=== PATIENT | male | born 2000 | race Caucasian/White ===

== ENCOUNTER 2023-04-10 09:29 | Inpatient (IN) | payer BC, SELFPAY ==
[2023-04-10 09:36] VITALS: BP 150/96; PULSE 106; RESP 16; TEMP 37.2; O2SAT 98; BMI 23.6
--- NOTE | 2023-04-10 09:41 | ED.C_ITS ---
Documented by User: TAMICA Whitt 04/10/23 10:45 HPI - Psych 2 General: Chief Complaint: Psychiatric Symptoms Stated Complaint: 96 hr hold Time Seen by Provider: 04/10/23 09:32 Source: patient and police Mode of arrival: other (police) Limitations: altered mental status History of Present Illness: Patient is a 22-year-old male who presents to the ED today on a 96-hour hold brought in by police. According to hold paperwork patient believes the government is trying to kill his coworkers and are actively hunting him. Hold paperwork states that patient believes he created an artificial intelligence and the government is now wanting him because of such. He reportedly lives in [place]. It is unknown how he got to [place]. Patient told officers that individuals had been shot at his workplace and he had fled. Hold paperwork states he told his sister that he found a scientific equation that can explain everything mathematically and that nobody could know about it because he did not want it getting into the wrong hands. He wanted his dad to retain a breastfeeding program coordinator to paten this information. He believed he would when a [employer] for it. complaint: altered mental status and other (delusional) Onset (ago): day(s) Duration: constant History of same: No Relieving factors: none Exacerbating factors: none Associated symptoms: Deny auditory hallucinations, visual hallucinations, depression, homicidal ideation or suicidal ideation Treatments prior to arrival: placed on mental health hold Review of Systems 2 Const: Denies: fever(s) or chills Card: Denies: chest pain, palpitations, lightheadedness or syncope Resp: Denies: dyspnea GI: Denies: abdominal pain, nausea, vomiting or diarrhea Skin/Breast: Denies: rash Neuro: Denies: headache(s) Psych: Reports: anxiety and paranoia; Denies: depression, hopelessness, loss of interest, irritability, visual hallucinations, auditory hallucinations, suicidal ideation or homicidal ideation Physical Exam 2 Const: COMMON NORMALS: no acute distress, average body habitus, patient oriented x3, no limitations, healthy appearing, alert and well nourished G ENERAL APPEARANCE: cooperative and well kempt Resp: COMMON NORMALS: normal respiratory effort and clear to auscultation bilaterally AUSCULTATION: clear to auscultation bilaterally Cardio: COMMON NORMALS: regular rate and regular rhythm RATE: regular rate RHYTHM: regular rhythm Neuro: COMMON NORMALS: patient oriented x3 SENSORIUM/ORIENTATION: Yes alert Psych: COMMON NORMALS: mental status grossly normal, cooperative, normal affect, speech normal, activity/motor behavior normal, denies hallucinations, denies homicidal ideation and denies suicidal ideation APPEARANCE: Yes grossly normal and Yes well kempt ATTITUDE: Yes Guarded attititude/behavior present ACTIVITY/MOTOR BEHAVIOR: Yes appropriate eye contact and No psychomotor agitation SPEECH: Yes normal speech MOOD & AFFECT: Yes euthymic mood ATTENTION/CONCENTRATION: Yes attention grossly intact and Yes concentration grossly intact MEMORY/COGNITION: Yes memory grossly intact and Yes cognition grossly intact INSIGHT: Limited insight present (Psych) J UDGEMENT: Limited judgement present (Psych) Course 2 Consultations: Consultation #1: Dr. Sr-accepts to NPU Vital Signs: Vital signs: Vital Signs Temperature 97.5 F L 04/12/23 20:29 Pulse Rate 105 H 04/12/23 22:04 Respiratory Rate 122 H 04/12/23 22:05 Blood Pressure 117/84 04/12/23 20:29 Pulse Oximetry 95 04/12/23 20:29 Oxygen Delivery Me thod Room Air 04/12/23 14:00 [facility] - Psych Medical Decision Making Patient will be an admit to NPU to Dr. Sr for treatment and evaluation of his acute psychosis. He is on a 96-hour hold. Lab Data I reviewed the patient's lab results. 04/12/23 01:13 04/12/23 01:13 Radiology Impressions Chest X-Ray 04/12/23 00:54 IMPRESSION: Mild lung hyperinflation without other significant plain radiographic abnormality. Chest CTA 04/12/23 02:37 IMPRESSION: 1. No pulmonary embolus detected 2. No aortic aneurysm or dissection 3. Negative for infiltrate 4. At least 1 gallstone detected within the gallbladder. Negative for gallbladder wall thickening or biliary ductal dilatation Gallbladder Ultrasound 04/12/23 04:39 IMPRESSION: 1. Suboptimal/incomplete visualization pancreas 2. Single gallstone in what appears to be a small amount of sludge identified in the gallbladder without gallbladder wall thickening or biliary ductal dilatation. Laboratory Results WBC 7.02 10^3/uL (3.29-11.43) 04/10/23 09:55 RBC 5.20 10^6/uL (3.85-5.65) 04/10/23 09:55 Hgb 16.10 g/dL (11.27-16.99) 04/10/23 09:55 Hct 47.5 % (37-53) 04/10/23 09:55 MCV 91.3 fl (82-101) 04/10/23 09:55 MCH 31.0 pg (27-33) 04/10/23 09:55 MCHC 33.9 g/dL (30-55) 04/10/23 09:55 RDW 12.4 % (12.1-15.1) 04/10/23 09:55 Plt Count 290 10^3/cmm (157-399) 04/10/23 09:55 MPV 8.8 fL (7.4-10.4) 04/10/23 09:55 Neut % (Auto) 75.3 % 04/10/23 09:55 Lymph % (Auto) 17.5 % 04/10/23 09:55 Perry % (Auto) 6.6 % 04/10/23 09:55 Eos % (Auto) 0.1 % 04/10/23 09:55 Baso % (Auto) 0.4 % 04/10/23 09:55 Neut # (Auto) 5.28 10^3/uL (1.8-7.7) 04/10/23 09:55 Lymph # (Auto) 1.2 10^3/uL (0.8-4.8) 04/10/23 09:55 Perry # (Auto) 0.5 10^3/uL (0.2-0.9) 04/10/23 09:55 Eos # (Auto) 0.0 10^3/uL (0.0-0.8) 04/10/23 09:55 Baso # (Auto) 0.0 10^3/uL (0.0-0.1) 04/10/23 09:55 Nucleated RBC % (auto) 0 % 04/10/23 09:55 Nucleated RBCs # 0.0 /100WBC 04/10/23 09:55 Sodium 141 mmol/L (136-145) 04/10/23 09:55 Potassium 5.4 mmol/L (3.5-5.1) H 04/10/23 09:55 Chloride 103 mmol/L (98-107) 04/10/23 09:55 Carbon Dioxide 21 mmol/L (22-29) L 04/10/23 09:55 Anion Gap 22.4 (5-19) H 04/10/23 09:55 BUN 7 mg/dL (6-20) 04/10/23 09:55 Creatinine 0.9 mg/dL (0.7-1.2) 04/10/23 09:55 GFR Calculation 103.7 mL/min (90-130) 04/10/23 09:55 Glucose 102 mg/dL (65-115) 04/10/23 09:55 Calculated Osmolality 290 mOsm/kg (285-295) 04/10/23 09:55 Calcium 10.2 mg/dL (8.5-10.5) 04/10/23 09:55 Total Bilirubin 1.5 mg/dL (0.15-1.2) H 04/10/23 09:55 AST 14 U/L (0-40) 04/10/23 09:55 ALT 14 U/L (0-41) 04/10/23 09:55 Alkaline Phosphatase 36 U/L (40-130) L 04/10/23 09:55 Total Protein 8.2 g/dL (6.6-8.7) 04/10/23 09:55 Albumin 5.1 g/dL (3.5-5.2) 04/10/23 09:55 Globulin 3.1 g/dL (1.3-4.6) 04/10/23 09:55 Salicylates < 0.3 mg/dL (3-10) L 04/10/23 09:55 Urine Opiates Screen Negative ng/mL (Negative) 04/10/23 09:37 Acetaminophen < 5.0 ug/mL (10-30) L 04/10/23 09:55 Ur Barbiturates Screen Negative ng/mL (Negative) 04/10/23 09:37 Ur Phencyclidine Scrn Negative ng/mL (Negative) 04/10/23 09:37 Ur Amphetamines Screen Negative ng/mL (Negative) 04/10/23 09:37 U Benzodiazepines Scrn Negative ng/mL (Negative) 04/10/23 09:37 Urine Cocaine Screen Negative ng/mL (Negative) 04/10/23 09:37 U Marijuana (THC) Screen Positive ng/mL (Negative) H 04/10/23 09:37 Ethyl Alcohol < 10 mg/dL (0-10) 04/10/23 09:55 No radiology studies performed this visit Discharge Plan Discharge Patient Disposition: Admitted As Inpatient Admit Provider: Nuno Sr Clinical Impression: Acute psychosis Condition: Stable Coding Level of Care Code ED Sales Data Analyst for Chg Fwd Documented by User: Derick Burdick DO 04/13/23 07:10 HPI - Psych 2 General: Chief Complaint: Psychiatric Symptoms Stated Complaint: 96 hr hold Time Seen by Provider: 04/10/23 09:32 Course 2 Vital Signs: Vital signs: Vital Signs Temperature 97.5 F L 04/12/23 20:29 Pulse Rate 105 H 04/12/23 22:04 Respiratory Rate 122 H 04/12/23 22:05 Blood Pressure 117/84 04/12/23 20:29 Pulse Oximetry 95 04/12/23 20:29 Oxygen Delivery Me thod Room Air 04/12/23 14:00 MDM - Psych Medical Decision Making Patient will be an admit to NPU to Dr. Sr for treatment and evaluation of his acute psychosis. He is on a 96-hour hold. Midlevel review orders written Lab Data 04/12/23 01:13 04/12/23 01:13 Radiology Impressions Chest X-Ray 04/12/23 00:54 IMPRESSION: Mild lung hyperinflation without other significant plain radiographic abnormality. Chest CTA 04/12/23 02:37 IMPRESSION: 1. No pulmonary embolus detected 2. No aortic aneurysm or dissection 3. Negative for infiltrate 4. At least 1 gallstone detected within the gallbladder. Negative for gallbladder wall thickening or biliary ductal dilatation Gallbladder Ultrasound 04/12/23 04:39 IMPRESSION: 1. Suboptimal/incomplete visualization pancreas 2. Single gallstone in what appears to be a small amount of sludge identified in the gallbladder without gallbladder wall thickening or biliary ductal dilatation. Laboratory Results WBC 7.02 10^3/uL (3.29-11.43) 04/10/23 09:55 RBC 5.20 10^6/uL (3.85-5.65) 04/10/23 09:55 Hgb 16.10 g/dL (11.27-16.99) 04/10/23 09:55 Hct 47.5 % (37-53) 04/10/23 09:55 MCV 91.3 fl (82-101) 04/10/23 09:55 MCH 31.0 pg (27-33) 04/10/23 09:55 MCHC 33.9 g/dL (30-55) 04/10/23 09:55 RDW 12.4 % (12.1-15.1) 04/10/23 09:55 Plt Count 290 10^3/cmm (157-399) 04/10/23 09:55 MPV 8.8 fL (7.4-10.4) 04/10/23 09:55 Neut % (Auto) 75.3 % 04/10/23 09:55 Lymph % (Auto) 17.5 % 04/10/23 09:55 Perry % (Auto) 6.6 % 04/10/23 09:55 Eos % (Auto) 0.1 % 04/10/23 09:55 Baso % (Auto) 0.4 % 04/10/23 09:55 Neut # (Auto) 5.28 10^3/uL (1.8-7.7) 04/10/23 09:55 Lymph # (Auto) 1.2 10^3/uL (0.8-4.8) 04/10/23 09:55 Perry # (Auto) 0.5 10^3/uL (0.2-0.9) 04/10/23 09:55 Eos # (Auto) 0.0 10^3/uL (0.0-0.8) 04/10/23 09:55 Baso # (Auto) 0.0 10^3/uL (0.0-0.1) 04/10/23 09:55 Nucleated RBC % (auto) 0 % 04/10/23 09:55 Nucleated RBCs # 0.0 /100WBC 04/10/23 09:55 Sodium 141 mmol/L (136-145) 04/10/23 09:55 Potassium 5.4 mmol/L (3.5-5.1) H 04/10/23 09:55 Chloride 103 mmol/L (98-107) 04/10/23 09:55 Carbon Dioxide 21 mmol/L (22-29) L 04/10/23 09:55 Anion Gap 22.4 (5-19) H 04/10/23 09:55 BUN 7 mg/dL (6-20) 04/10/23 09:55 Creatinine 0.9 mg/dL (0.7-1.2) 04/10/23 09:55 GFR Calculation 103.7 mL/min (90-130) 04/10/23 09:55 Glucose 102 mg/dL (65-115) 04/10/23 09:55 Calculated Osmolality 290 mOsm/kg (285-295) 04/10/23 09:55 Calcium 10.2 mg/dL (8.5-10.5) 04/10/23 09:55 Total Bilirubin 1.5 mg/dL (0.15-1.2) H 04/10/23 09:55 AST 14 U/L (0-40) 04/10/23 09:55 ALT 14 U/L (0-41) 04/10/23 09:55 Alkaline Phosphatase 36 U/L (40-130) L 04/10/23 09:55 Total Protein 8.2 g/dL (6.6-8.7) 04/10/23 09:55 Albumin 5.1 g/dL (3.5-5.2) 04/10/23 09:55 Globulin 3.1 g/dL (1.3-4.6) 04/10/23 09:55 Salicylates < 0.3 mg/dL (3-10) L 04/10/23 09:55 Urine Opiates Screen Negative ng/mL (Negative) 04/10/23 09:37 Acetaminophen < 5.0 ug/mL (10-30) L 04/10/23 09:55 Ur Barbiturates Screen Negative ng/mL (Negative) 04/10/23 09:37 Ur Phencyclidine Scrn Negative ng/mL (Negative) 04/10/23 09:37 Ur Amphetamines Screen Negative ng/mL (Negative) 04/10/23 09:37 U Benzodiazepines Scrn Negative ng/mL (Negative) 04/10/23 09:37 Urine Cocaine Screen Negative ng/mL (Negative) 04/10/23 09:37 U Marijuana (THC) Screen Positive ng/mL (Negative) H 04/10/23 09:37 Ethyl Alcohol < 10 mg/dL (0-10) 04/10/23 09:55 Discharge Plan Discharge Patient Disposition: Admitted As Inpatient Admit Provider: Nuno Sr Clinical Impression: Acute psychosis Condition: Stable Coding Level of Care Code ED Sales Data Analyst for Lloyd French
[2023-04-10 09:49] LABS: Amphetamines Screen Urine Negative (Negative); Barbiturates Screen Urine Negative (Negative); Benzodiazepines Screen Urine Negative (Negative); Cocaine Screen Urine Negative (Negative); Opiate Screen Urine Negative (Negative); PCP Screen Urine Negative (Negative); THC Screen Urine Positive (Negative)
[2023-04-10 10:11] LABS: Basophils % 0.4 %; Eosinophils % 0.1 %; Hematocrit 47.5 % (37-53); Lymphocytes # 1.2 10^3/uL (0.8-4.8); Lymphocytes % 17.5 %; Mean Corpuscular HGB Conc 33.9 g/dL (30-55); Mean Corpuscular Volume 91.3 fl (82-101); Mean Platelet Volume 8.8 fL (7.4-10.4); Monocytes # 0.5 10^3/uL (0.2-0.9); Monocytes % 6.6 %; Neutrophils # 5.28 10^3/uL (1.8-7.7); Neutrophils % 75.3 %; Nucleated Red Blood Cells % 0 %; Platelet Count 290 10^3/cmm (157-399); Red Cell Distribution Width 12.4 % (12.1-15.1); White Blood Count 7.02 10^3/uL (3.29-11.43)
[2023-04-10 10:33] LABS: Alanine Aminotransferase 14 U/L (0-41); Albumin Level 5.1 g/dL (3.5-5.2); Alkaline Phosphatase 36 U/L (40-130); Anion Gap 22.4 (5-19); Aspartate Amino Transferase 14 U/L (0-40); Blood Urea Nitrogen 7 mg/dL (6-20); Calcium 10.2 mg/dL (8.5-10.5); Carbon Dioxide 21 mmol/L (22-29); Chloride 103 mmol/L (98-107); Creatinine Clr Calc Pharmacy 127.9043; Globulin 3.1 g/dL (1.3-4.6); Glomerular Filtration Rate 103.7 mL/min (90-130); Glucose 102 mg/dL (65-115); Osmolality Calculated 290 mOsm/kg (285-295); Potassium 5.4 mmol/L (3.5-5.1); Sodium 141 mmol/L (136-145); Total Bilirubin 1.5 mg/dL (0.15-1.2); Total Protein 8.2 g/dL (6.6-8.7)
[2023-04-10 10:35] LABS: Acetaminophen < 5.0 ug/mL (10-30); Alcohol Level < 10 mg/dL (0-10); Salicylate < 0.3 mg/dL (3-10)
[2023-04-10] MEDS: ibuprofen 600 mg Tablet PO (10:57)
--- NOTE | 2023-04-10 12:15 | PC.NURSE ---
96 hour hold rights read and reviewed with patient. Patient verbalized understandings. Copy of rights given to patient.
[2023-04-10 12:31] VITALS: BP 150/96; PULSE 106; RESP 16; TEMP 37.2; O2SAT 98
[2023-04-10 12:56] VITALS: BP 132/87; PULSE 105; RESP 14; TEMP 36.8; O2SAT 98
--- NOTE | 2023-04-10 13:18 | PC.NURSE ---
Patient arrived to unit, appearing a bit nervous and paranoid. Patient requested that staff lock his door when we left the room. He was understanding when we explained why we had to keep it open to be able to do 15 minute checks. When asked what had brought him to the ER he stated, no clear reason. The police just brought me in. They said it was to check on my mental health or something. When asking if patient was in any pain today he replied, ya, I actually have been a little bit lately. Maybe that's why the police brought me here? He endorses a recent poor appetite because of stress. 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 When asked if this was for school or work he stated that it was for neither, that he just had to get it done. He denies any previous psychiatric hospitalizations or outpatient treatment. He also denies avh and si/hi. Patient only endorses utilizing marijuana twice weekly, with the last use being 5 days ago.
[2023-04-10 13:25] VITALS: BP 129/82; PULSE 98; RESP 13; TEMP 36.6; O2SAT 98
--- NOTE | 2023-04-10 16:13 | PC.NURSE ---
Patient stated to this nurse, you might wanna stay away from me so I don't hurt your baby. Ya know, because of the radiation I'm emitting. And that's not good for babies. He then later asked if this RN if he passed if I could spread the word to trustworthy people and that he knew he sounded like a paranoid schizophrenic, but that he was not a paranoid schizophrenic. Patient pacing the hallway very quickly.
--- NOTE | 2023-04-10 18:16 | PC.NURSE ---
Patient yelled for nurses that there was someone with a loaded gun in the [facility] bathroom on the south side. This RN went with the patient to assure him no one was in the restroom. After patient accepted no one was there he began to panic again and asked that we check on the doctor in the doctor's office because he believed someone was in there with a gun about to kill him. This nurse reassured him the doctor was okay and patient began rambling about how it was normal for him to be paranoid because he had been threatened with murder for the last 4 years for what he had thought of and shared with others.
[2023-04-10 20:44] VITALS: BP 112/61; PULSE 81; RESP 18; TEMP 36.5; O2SAT 91
--- NOTE | 2023-04-10 23:44 | PC.NURSE ---
WHEN COMPLETING ASSESSMENT EARLIER IN THE SHIFT PT DENIED PAIN. DENIED SI/HI AND AVH. RATED ANXIETY 8/10 AND DEPRESSION 0/10. PT MADE AT POINT TO LET RN KNOW I'M NOT CRAZY BUT WHEN THE CAMERAS ARE NOT ON I NEED TO TELL YOU SOMETHING. RN ASSURED PT THAT HE COULD TELL ME ANYTHING BUT PT DECLINED AT THIS TIME. PT CONTINUED TO PACE HALLS AND WAS ACTIVELY ANXIOUS. PT WAS OFFERED PRN MEDICATIONS AND MEDICATIONS TO ENHANCE SLEEP. PT STATED I'V BEEN AWAKE FOR SIX DAYS AND I'M NOT SLEEPING NOW. PT IS NOTED TO HAVE DELUSIONS AND MADE STATEMENTS THAT DR. IS REALLY AND AI TOOK OVER HIS BODY. I'M TELLING YOU THIS SO YOU KNOW AND CAN PREPARE FOR THE WAR AGAINST THE GOOD PEOPLE AND THE BAD AI PEOPLE. PT THEN LOOKED UP TO THE CAMERAS AND STATED SEE THESE CAMERAS ARE AI AND THEY REPORT BACK EVERYTHING WE ARE SAYING AND SINCE I TOLD YOU THIS NOW YOUR GOING TO BECAUSE THEY CAN PINPOINT YOU AND RELEASE RADIATION, THE RADIATION TAKES TWO MONTHS TO KILL YOU BUT YOU WILL . RN AND STAFF UNABLE TO ORIENTATE PT. PT THINKS IF WE DO NOT AGREE WITH HIM AND DON'T BELIEVE HIM THEN WE ARE AI TOO AND HE CAN NO LONGER TRUST THE STAFF. PT CONTINUES TO PACE HALLS, HAVE PARANOIA AND DELUSIONAL THINKING. PT ASKS RN TO SNEAK A PHONE INTO HIM SO HE CAN GET A MESSAGE OUT TO THE WORLD TO PREPARE FOR THE WAR. PT WAS EDUCATED THAT HE CAN USE THE PHONE FROM 0700 AM TO 2200 AND STAFF IS UNABLE TO LET HIM USE ANY ELECTRONIC DEVICE. PT VERBALIZED UNDERSTANDING BUT STATED I REALLY NEED TO GET THE MESSAGE OUT. SECURITY CAME DOWN TO SPEAK TO PT REGARDING PTS REQUEST TO HAVE THE AREA CHECKED FOR RADIATION. PT ALSO WOULD LIKE STAFF AND HIM CHECKED FOR RADIATION DUE TO THE AI TECHNOLOGY BEING ABLE TO PINPOINT RADIATION ONTO ALL OF US FOR KNOWING THIS INFORMATION. PT IS FIXATED AND STATES HE CAN NOT REST UNTIL THE ROOM IS CHECKED FOR RADIATION. PT INFORMED THAT RN DID NOT KNOW IF WE HAD ANYTHING TO MEASURE RADIATION WITH BUT IF I COULD FIND SOMETHING RN WOULD DEFINITELY CHECK HIS ROOM SO HE COULD SLEEP. PT ALSO BELIEVES THERE ARE CHIPS IMPLANTED IN OTHER PTS NOSES. ALL QUESTIONS ANSWERED AND SUPPORT WAS VOICED.
[2023-04-11] VITALS (9 sets, daily range): BP systolic 104–129; BP diastolic 65–79; PULSE 74–119; RESP 16–22; O2SAT 95–98
--- NOTE | 2023-04-11 08:14 | P.NPUHP_ITS ---
Providers/Chief Complaint 2 Admitting Physician: Nuno Sr MD Chief Complaint: 96 hr hold [facility] NPU History of Present Illness Elijah Patel is a 22 year old male who presented to the emergency department on 04/10/2023 on a 96-hour hold on the order of the police. The patient's sister, Kim, per previous records had contacted the crisis team on the phone and stated that she was concerned about the whereabouts of her brother Elijah. The patient had apparently gone to work in [facility] and had begun to have hallucinations that his coworkers were being killed. Patient had then apparently left his phone at work went into his car and travel to where [facility] where he had claimed that a bird had helped him find the police station. The patient had indeed confirmed of this information on interview today. He reports that he had spoken to officers and told them that individuals at his workplace had been shot at and he reports that he has managed to discover a specific scientific equation that can explain everything mathematically and he reports that this information if given to the wrong hands would lead to his . He had stated that he would be potentially killed for this information as it had been regarding artificial intelligence and he stated that the government was now attempting to justin him down. He denied any depressed mood. He denied having thoughts of hurting himself or others. He denied any current auditory or visual hallucinations. He had acknowledged that he had felt that his coworkers had been potentially killed. He had reported no change in sleep patterns. The patient had reported during the interview that the senior copywriter and the patient had shared the diagnosis of autism. He had reported having special knowledge exclusive to him only. He minimized any manic symptoms on interview. Inpatient psychiatric history: None Outpatient psychiatric history: None Drug and alcohol history: Patient minimized any drug or alcohol use stating that he occasionally uses marijuana. He has no history of drug or alcohol treatment. 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 Surgical history: Rhinoplasty Allergies: Penicillin Family psychiatric history: Mother suffered from depression Social history: Patient was born in [facility] and raised by his parents who had split up when he was approximately 2 years old. He reports that he had lived with his mother until the seventh grade and then had gone to live with the father. She he reported that he had done well in school. He had reported no history of sexual physical or emotional abuse. He reported that he has an older sister that is approximately 11 years older. 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 He has never been and has no children. He has no history of legal problems and has no history. Meds NPU Home Medications Medication Instructions Recorded Confirmed Last Taken Type hydroxyzine HCl 25 mg tablet 25 mg PO BID PRN Anxiety 04/10/23 04/10/23 Unknown History ibuprofen 200 mg tablet 400 - 600 mg PO Q6H PRN Pain 04/10/23 04/10/23 Unknown History sumatriptan succinate 100 mg tablet See Rx Instructions .Route .COMPLEX 04/10/23 04/10/23 Unknown History Allergies Allergy/AdvReac Type Severity Reaction Status Date / Time Penicillins Allergy Unknown Verified 04/10/23 10:18 Mental Status Exam 2 MSE Comments: Healthy white male who appeared his stated age with fair eye contact and normal gait. There was no evidence of any abnormal involuntary motor movements tics or tremors. He did appear internally preoccupied. His speech was normal in regards to volume, but with increased rate. His mood was described as worried. His affect was mood incongruent and somewhat grandiose. He had endorsed a feeling of uniqueness and specialist with clear evidence of delusions of grandeur. His thought process was linear and logical. His thought content showed no evidence of homicidal ideation and no suicidal ideation. There was clear evidence of bizarre delusions. He did at times appear to be responding to internal stimuli. His insight is impaired. His judgment is poor. His impulse control appeared limited. He was alert and oriented to person place and time. There was significant evidence of ideas of reference. Vitals/I&O/Wt Last Vital Signs Temp 98 F 04/10/23 13:25 Pulse 98 04/10/23 13:25 Resp 13 04/10/23 13:25 BP 129/82 04/10/23 13:25 Pulse Ox 98 04/10/23 13:25 O2 Del Method Room Air 04/10/23 12:58 Weight last 48 hrs Weight 72.575 kg Data NPU 04/10/23 09:55 04/10/23 09:55 A&P Assessment and plan (1) Acute psychosis: (2) Brief psychotic disorder: Plan 22-year-old male who presents on a 96-hour hold acutely psychotic with significant paranoia along with some grandiosity involving having solved some mysterious mathematical equation leading to the patient feeling as if his life is in danger. He has no previous history of inpatient hospitalizations but likely benefit from continued hospital stay here. ?1. Encourage individual, group and milieu therapy. ?2.Recommend sober living treatment at the highest level of care to which the patient is willing to commit. 3.Continue q-15 minute checks for safety.? 4. Patient remain on 96, refusing any medication at this time will likely require forced medications. Involuntary Hold Information 2 96 Hour Hold: 96 Hour Involuntary Admission: Yes 96 Hour Hold Ending Date: 04/16/23 96 Hour Hold Ending Time: 09:29 Attestations NPU 2 Medical Necessity Statement*: Inpatient hospitalization is medically necessary and deemed to be the clinically appropriate intervention at this time. We will monitor initiate medications while making changes as indicated. The patient will be in the hospital for over 2 midnights. Patient's likely length of stay is 7 to 10 days. Coding Level of Care Code Acute Code for Chg Fwd Diagnoses Acute psychosis F23 Brief psychotic disorder F23
--- NOTE | 2023-04-11 08:35 | PC.NURSE ---
PT CURRENTLY DENIES SI/HI/AH/VH. PT IS PACING THE HALLWAYS AND TALKING CONSTANTLY. PT CURRENTLY ENDORSES ANXIETY RATING IT A 4/10 ON A 0-10 SCALE WHERE 0 IS NONE AND 10 IS THE WORST. PT CURRENTLY DENIES PRN MEDICATION FOR ANXIETY. PT ENDORSES DEPRESSION RATING IT A 6/10 ON A SCALE OF 0-10 WHERE 0 IS NONE AND 10 IS THE WORST. PT ALSO ENDORSES PAIN RATING IT A 3/10 ON A 0-10 SCALE WHERE 0 IS NONE AND 10 IS THE WORST HOWEVER DENIES NEED FOR PAIN MEDICATIONS. PT CURRENT NEEDS ARE MET AT THIS TIME.
[2023-04-11] MEDS: haloperidol inj 5 mg/mL INJ 1 mL IM (09:12)
[2023-04-11] MEDS: LORazepam 2 mg/mL INJ 1 mL IM (09:12)
[2023-04-11] MEDS: diphenhydrAMINE 50 mg/mL SDV 1mL IM (09:12)
--- NOTE | 2023-04-11 09:35 | W.PM.BREST ---
Face to Face: Restrn/Seclusion Events leading up to initiation: Combative/Striking out at staff or others Evaluation of patient's immediate situation: No signs of physical distress Patient reaction since intervention applied: Continued attempts/displays harmful behavior Recent labs reviewed: No Review of medications: Yes Patient's current medical/behavioral condition: No new concerns since last ROS Need for restraint or seclusion is: Continued Attending notified: Attending completed assessment
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
--- NOTE | 2023-04-11 11:32 | PC.NURSE ---
processing out one limb at a time
--- NOTE | 2023-04-11 11:33 | PC.NURSE ---
processing out one limb at a time
--- NOTE | 2023-04-11 11:37 | PC.NURSE ---
all limbs out of restraints, 1:1 sitter present. patient lying on bed with eyes closed, resp even and unlabored.
--- NOTE | 2023-04-11 12:55 | PC.NURSE ---
Patient up and to the bathroom, changed scrubs and went to bed. Patient doesn't know what day it is and is unsure where he is. Patient asking questions about robots and security. Patient was asked if he wanted to lay down and rest, patient states he does. Sitter outside door.
--- NOTE | 2023-04-11 20:27 | PC.NURSE ---
due to pt behaviours vital signs not done.
[2023-04-12] VITALS (12 sets, daily range): BP systolic 95–128; BP diastolic 65–89; PULSE 86–193; RESP 15–122; TEMP 36.3–37.1; O2SAT 95–97; BMI 26.6
--- NOTE | 2023-04-12 00:23 | ECG_ITS ---
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 Measurements Intervals [place] Rate: 176 P: 0 CA: 0 QRS: 263 QRSD: 94 T: 70 QT: 245 QTc: 420 Interpretive Statements ATRIAL FIBRILLATION versus atrial flutter versus SVT RIGHT AXIS DEVIATION [QRS AXIS > 100] S1-S2-S3 PATTERN, CONSISTENT WITH PULMONARY DISEASE, RVH, OR NORMAL VARIANT PATTERN CONSISTENT WITH PULMONARY DISEASE INCOMPLETE RIGHT BUNDLE BRANCH BLOCK [90+ ms QRS DURATION, TERMINAL R IN V1/V2, 40+ ms S IN I/aVL/V4/V5/V6] CRITICAL TEST RESULT No previous ECG available for comparison Electronically Signed On 04-12-2023 7:53:46 REFRIGERATING MACHINE OPERATOR by Jesse Ramos M.D. [id number]
--- NOTE | 2023-04-12 00:54 | XRR_ITS ---
PROCEDURE INFORMATION: Exam: XR Chest Exam date and time: 04/12/2023 1:09 AM Age: 22 years old Clinical indication: Patient HX: New onset of afib; Additional info: New afib w rvr TECHNIQUE: Imaging protocol: Radiologic exam of the chest. Views: 1 view. COMPARISON: No relevant prior studies available. FINDINGS: Lungs: Mildly hyperinflated lungs.. No consolidation. Pleural spaces: Unremarkable. No pleural effusion. No pneumothorax. Heart/Mediastinum: Unremarkable. No cardiomegaly. Bones/joints: Unremarkable. XR/XR chest 1V portable [id number] IMPRESSION: Mild lung hyperinflation without other significant plain radiographic abnormality.
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
[2023-04-12 01:30] LABS: Basophils % 0.5 %; Eosinophils # 0.1 10^3/uL (0.0-0.8); Hematocrit 45.1 % (37-53); Lymphocytes # 1.8 10^3/uL (0.8-4.8); Lymphocytes % 20.6 %; Mean Corpuscular HGB Conc 35.3 g/dL (30-55); Mean Corpuscular Hemoglobin 31.5 pg (27-33); Mean Corpuscular Volume 89.3 fl (82-101); Mean Platelet Volume 8.6 fL (7.4-10.4); Monocytes # 0.8 10^3/uL (0.2-0.9); Monocytes % 9.7 %; Neutrophils # 5.86 10^3/uL (1.8-7.7); Neutrophils % 68.1 %; Nucleated Red Blood Cells % 0 %; Platelet Count 274 10^3/cmm (157-399); Red Blood Count 5.05 10^6/uL (3.85-5.65); Red Cell Distribution Width 12.4 % (12.1-15.1)
--- NOTE | 2023-04-12 01:39 | P.CONIM_ITS ---
Providers/Reason For Consult 2 Consulting Physician/Specialty*: Psychiatry Dr Ryder Reason for Consult*: AFib w RVR Attending Physician: Nuno Sr MD History of Present Illness History of Present Illness Elijah Patel is a 22 year old male 22-year-old gentleman admitted to neuropsychiatric unit with acute psychotic episode, noticed having palpitations/racing heart rate this evening, EKG was performed with finding of A-fib with RVR heart rates 160s-170s. He does not have history of atrial fibrillation. Lab work from 04/10 with mild hyperkalemia 5.4. He states that he vapes marijuana, denies other recreational drug use. Does not drink alcohol. He denies chest pain or pressure, denies lightheadedness or other symptoms. He has had mild cough. Review of Systems 2 Const: Denies: fever(s), chills, body aches or malaise ENMT: Denies: throat pain Card: Reports: palpitations; Denies: chest pain, edema, pre-syncope or dyspnea on exertion Resp: Reports: productive cough (Smaller sputum that is difficult to bring up); Denies: dyspnea, change in phlegm color or hemoptysis GI: Denies: abdominal pain, nausea, vomiting, diarrhea, constipation, hematochezia or melena : Denies: flank pain, difficulty urinating, urinary frequency or hematuria Musc: Denies: back pain, joint swelling or joint redness Skin/Breast: Denies: rash or new lesions Medications/Allergies Home Medications Medication Instructions Recorded Confirmed Last Taken Type hydroxyzine HCl 25 mg tablet 25 mg PO BID PRN Anxiety 04/10/23 04/10/23 Unknown History ibuprofen 200 mg tablet 400 - 600 mg PO Q6H PRN Pain 04/10/23 04/10/23 Unknown History sumatriptan succinate 100 mg tablet See Rx Instructions .Route .COMPLEX 04/10/23 04/10/23 Unknown History Allergies Allergy/AdvReac Type Severity Reaction Status Date / Time Penicillins Allergy Unknown Verified 04/10/23 10:18 Current Medications Generic Name Dose Route Start Last Admin Trade Name Freq PRN Reason Stop Dose Admin Diphenhydramine HCl 50 mg 04/10/23 12:56 04/11/23 09:12 Diphenhydramine 50 Mg/Ml Sdv 1ml IM 50 mg Q4H PRN Administration Severe Aggression Haloperidol Lactate 5 mg 04/10/23 12:56 04/11/23 09:12 Haloperidol Inj 5 Mg/Ml Inj 1 Ml IM 5 mg Q4H PRN Administration Severe Aggression Lorazepam 2 mg 04/10/23 12:56 04/11/23 09:12 Lorazepam 2 Mg/Ml Inj 1 Ml IM 2 mg Q4H PRN Administration Severe Aggression Vitals/I&O/Wt Last Vital Signs Temp 97.4 F L 04/12/23 00:32 Pulse 173 H 04/12/23 00:56 Resp 20 H 04/12/23 00:32 BP 119/75 04/12/23 00:32 Pulse Ox 95 04/12/23 00:32 O2 Del Method Room Air 04/12/23 00:32 04/11/23 04/11/23 04/12/23 14:59 22:59 06:59 Output Total 375 / 375 Balance -375 / -375 Weight last 48 hrs Weight 72.575 kg Physical Exam 2 Const: COMMON NORMALS: patient oriented x3 and alert GENERAL APPEARANCE: c ooperative ORIENTATION/CONSCIOUSNESS: Yes awake HENMT: COMMON NORMALS: oropharynx normal Neck/C-Spine: COMMON NORMALS: no JVD Resp: COMMON NORMALS: normal respiratory effort and clear to auscultation bilaterally AUSCULTATION: clear to auscultation bilaterally Cardio: COMMON NORMALS: no JVD, regular rhythm, S1 normal heart sound present, S2 normal heart sound present and No murmurs present (Cardio) RATE: t achycardic RHYTHM: regular rhythm HEART SOUNDS: S1 normal heart sound present and S2 normal heart sound present GI: COMMON NORMALS: Normal to inspection, nondistended, normoactive bowel sounds present, Soft to palpation and non-tender PALPATION: Yes Soft to palpation Extremity: COMMON NORMALS: no joint enlargement and no pedal edema Neuro: COMMON NORMALS: patient oriented x3 and moves all extremities S ENSORIUM/ORIENTATION: Yes alert Skin: COMMON NORMALS: no rashes or lesions noted GENERAL SKIN EXAM: no rashes or lesions noted Data 04/12/23 01:13 04/10/23 09:55 A&P Assessment and plan (1) Paroxysmal atrial fibrillation with RVR: A-fib with RVR symptomatic with palpitations, heart rates 170s-180s. So far maintain blood pressure: 119/75. Reviewed CBC, CMP from 04/10, UDS, reviewed psychiatrist note. He is brought over to CSU, IV obtained, placed on telemetry. Requesting Repeat CBC, CMP, Mg, TSH, Trop and EKG series. Discussed with him risk of decompensation, hemodynamic instability, starting with metoprolol IV 5 mg, repeated dose if necessary. Discussed risk of bradycardia, hypotension with IV metoprolol treatment. Need for continued monitoring. Monitor on telemetry. Discussed with psychiatrist. Complete troponin EKG series. Will need echocardiogram once heart rate better controlled. He does have some cough, with tachycardia will also assess D-dimer. (2) Acute psychosis: At current time moved to CSU for additional assessment management of tachycardia. Continue management of psychosis, should be able to return to n.p.u. once heart rate is controlled. (3) Brief psychotic disorder: Consult Attestations 2 Medical Necessity Statement: Continue admission for assessment management of tachycardia, episode of psychosis. Diagnoses Paroxysmal atrial fibrillation with RVR I48.0 Acute psychosis F23 Brief psychotic disorder F23
[2023-04-12 01:51] LABS: Troponin(5th) Baseline 9 ng/L (0-15)
[2023-04-12] MEDS: metoprolol tartrate 1 mg/1 mL SDV 5 mL 5 MG IVP (01:58)
[2023-04-12 02:13] LABS: Alanine Aminotransferase 21 U/L (0-41); Alkaline Phosphatase 37 U/L (40-130); Aspartate Amino Transferase 45 U/L (0-40); Blood Urea Nitrogen 11 mg/dL (6-20); Calcium 10.2 mg/dL (8.5-10.5); Carbon Dioxide 22 mmol/L (22-29); Chloride 102 mmol/L (98-107); Creatinine Clr Calc Pharmacy 127.9043; Globulin 2.4 g/dL (1.3-4.6); Glomerular Filtration Rate 103.7 mL/min (90-130); Glucose 111 mg/dL (65-115); Magnesium 1.9 mg/dL (1.7-2.3); Osmolality Calculated 290 mOsm/kg (285-295); Sodium 140 mmol/L (136-145); Thyroid Stimulating Hormone 2.98 uIU/mL (0.27-4.20); Total Bilirubin 1.8 mg/dL (0.15-1.2); Total Protein 7.4 g/dL (6.6-8.7)
[2023-04-12 02:34] LABS: D Dimer 1.32 ug/mLFEU (0-0.59)
--- NOTE | 2023-04-12 02:37 | CTR_ITS ---
PROCEDURE INFORMATION: Exam: CTA Chest With Contrast Exam date and time: 04/12/2023 4:12 AM Age: 22 years old Clinical indication: Abnormal findings; Abnormal diagnostic tests; Elevated d-dimer; Patient HX: Tachycardia with elevated dimer; Additional info: Assess for pe, tachycardia, cough, abnormal ddimer TECHNIQUE: Imaging protocol: Computed tomographic angiography of the chest with contrast. Exam focused on the arteries. 3D rendering (Not supervised by radiologist): MIP and/or 3D reconstructed images were created by the technologist. Radiation optimization: All CT scans at this facility use at least one of these dose optimization techniques: automated exposure control; mA and/or kV adjustment per patient size (includes targeted exams where dose is matched to clinical indication); or iterative reconstruction. Contrast material: OMNI 350; Contrast volume: 52 ml; Contrast route: INTRAVENOUS (IV); COMPARISON: CR (CHEST, ) 04/12/2023 1:09 AM RADIATION DOSE METRICS: Total DLP (mGy-cm): 255.48 FINDINGS: Pulmonary arteries: No pulmonary embolus is detected. Aorta: here is no aortic aneurysm or dissection. . Lungs: There are no infiltrates Pleural spaces: There is no pleural effusion Heart: There is no pericardial effusion. Lymph nodes: Unremarkable. No enlarged lymph nodes. Gallbladder and bile ducts: There is at least 1 gallstone in the gallbladder. Gallbladder wall does not appear thickened. There is no biliary ductal dilatation. Adrenal glands: The adrenal glands are unremarkable Bones/joints: There are degenerative changes in the spine Soft tissues: Unremarkable. CT/CT angio chest PE protcl [id number] IMPRESSION: 1. No pulmonary embolus detected 2. No aortic aneurysm or dissection 3. Negative for infiltrate 4. At least 1 gallstone detected within the gallbladder. Negative for gallbladder wall thickening or biliary ductal dilatation
--- NOTE | 2023-04-12 02:53 | ECG_ITS ---
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 Measurements Intervals [place] Rate: 127 P: 0 AK: 0 QRS: -42 QRSD: 98 T: 64 QT: 285 QTc: 415 Interpretive Statements ATRIAL FIBRILLATION WITH RAPID VENTRICULAR RESPONSE WITH ABERRANT CONDUCTION OR VENTRICULAR PREMATURE COMPLEXES INDETERMINATE AXIS Compared to ECG 04/12/2023 00:35:51 Ventricular premature complex(es) now present Aberrant conduction of supraventricular beat(s) now present Indeterminate axis now present Right-axis deviation no longer present Right ventricular hypertrophy no longer present Incomplete right bundle-branch block no longer present Electronically Signed On 04-12-2023 7:54:14 MIDDLE SCHOOL SPANISH TEACHER by Jesse Ramos M.D. [id number]
[2023-04-12] MEDS: metoprolol tartrate 25 mg Tablet PO (03:11)
[2023-04-12] MEDS: magnesium sulfate premix 1 GM/100 ML PIGGYBACK IV (03:12)
[2023-04-12 03:42] LABS: Troponin 5 2HR 10.58 ng/L (0-15); Troponin 5 2HR Delta 1.58 ABS# (0-10)
[2023-04-12] MEDS: iohexol 350 mg/mL 500 mL Btl (per mL) IV (04:19)
--- NOTE | 2023-04-12 04:39 | USR_ITS ---
PROCEDURE INFORMATION: Exam: US Abdomen, Limited; Right Upper Quadrant Exam date and time: 04/12/2023 7:43 AM Age: 22 years old Clinical indication: Abnormal findings; Abnormal lab test; Other: Bili; Additional info: Hyperbilirubinemia TECHNIQUE: Imaging protocol: Real time ultrasound of the abdomen with image documentation. Limited exam focused on the right upper quadrant. COMPARISON: CT angio chest PE protcl [id number] 04/12/2023 4:12 AM FINDINGS: Liver: The liver is unremarkable. Gallbladder: There is a mobile stones seen within the gallbladder as noted on CT. There also appears to be some sludge in the gallbladder. There is no gallbladder wall thickening. Biliary ducts: The common bile duct is not dilated and there is no intrahepatic ductal dilatation Pancreas: There is suboptimal/incomplete visualization of the pancreas due to bowel gas. Right kidney: The right kidney is unremarkable. It measures 9 point 1 cm in length Portal venous: The portal vein is patent with normal direction of flow US/US gall bladder [id number] IMPRESSION: 1. Suboptimal/incomplete visualization pancreas 2. Single gallstone in what appears to be a small amount of sludge identified in the gallbladder without gallbladder wall thickening or biliary ductal dilatation.
--- NOTE | 2023-04-12 04:41 | USCV_ITS ---
Elijah Patel Age: 22 Gender: M : 2000 Exam Date: 04/12/2023 14:25 Ordering Phys: Chris Parks MD Technologist: Mars Plascencia [place]am Location[place] [facility] [place] Indication: new afib BP: 130 / 83 HR: Rhythm: Sinus Technical Quality: Adequate MEASUREMENTS (Male / Female) Normal Values 2D ECHO LVOT Diameter 2.0 cm LV Ejection Fraction MOD 2C 57.3 % IVC Diameter 1.7 cm M-MODE LA Ao Ratio MM 1.0 AV Cusp Separation MM 2.1 cm DOPPLER AV Peak Velocity 108.0 cm/s AV Area Cont Eq vti 2.6 cm squared MV Area PHT 5.9 cm squared Mitral E to A Ratio 1.8 TR Peak Velocity 227.0 cm/s TR Peak Gradient 20.6 mmHg PV Peak Velocity 101.0 cm/s FINDINGS Left Ventricle Normal left ventricular size, systolic function and wall thickness, with no regional wall motion abnormalities. Normal left ventricular wall thickness. Normal diastolic filling pattern. Left ventricular ejection fraction is estimated at 60 %. Right Ventricle The right ventricle is normal in size and function. Right Atrium The right atrium is normal in size. Left Atrium The left atrium is normal in size. Mitral Valve Structurally normal mitral valve without significant stenosis or prolapse. There is no mitral regurgitation. Aortic Valve Structurally normal aortic valve without significant sclerosis or stenosis. There is no aortic regurgitation. Tricuspid Valve Structurally normal tricuspid valve without significant stenosis or regurgitation. Pulmonary artery systolic pressure is normal. Pulmonic Valve Structurally normal pulmonic valve without significant stenosis. There is no pulmonic regurgitation. Pericardium Normal pericardium without effusion. Aorta Normal ascending aorta dimension. IVC The inferior vena cava appears normal. CONCLUSIONS Normal transthoracic echocardiogram. There are no prior echocardiogram studies to compare. Dr. Jesse Ramos MD (Electronically Signed) Final Date: 12 April 2023 17:59 S
[2023-04-12 05:54] LABS: Adenovirus Not Detected (NOT DETECT); Chlamydia Pneumoniae Not Detected (NOT DETECT); Coronavirus 229E,HKU1,NL63,OC4 Not Detected (NOT DETECT); Human Metapneumovirus Not Detected (NOT DETECT); Human Rhinovirus/Enterovirus Not Detected (NOT DETECT); Influenza A Not Detected (NOT DETECT); Influenza A H1 Not Detected (NOT DETECT); Influenza A H1-2009 Not Detected (NOT DETECT); Influenza A H3 Not Detected (NOT DETECT); Influenza B Not Detected (NOT DETECT); Mycoplasma Pneumoniae Not Detected (NOT DETECT); Parainfluenza Virus Type 1 Not Detected (NOT DETECT); Parainfluenza Virus Type 2 Not Detected (NOT DETECT); Parainfluenza Virus Type 3 Not Detected (NOT DETECT); Parainfluenza Virus Type 4 Not Detected (NOT DETECT); Respiratory Syncytial Virus A Not Detected (NOT DETECT); Respiratory Syncytial Virus B Not Detected (NOT DETECT); SARS-COV-2 Not Detected (NOT DETECT)
[2023-04-12] MEDS: metoprolol tartrate 25 mg Tablet 50 MG PO (08:34)
[2023-04-12 10:01] LABS: Troponin 5 6HR 8.16 ng/L (0-15)
[2023-04-12 10:02] LABS: Troponin 5 6HR Delta -0.84 ng/L (0-12)
--- NOTE | 2023-04-12 10:41 | P.PN_ITS ---
Subjective 2 Subjective: Gallstones without signs of cholecystitis No signs of PE A-fib RVR Increase the dose of metoprolol [id number] is 4 he is not a candidate for anticoagulation Drug screen reviewed No active chest pain Hemodynamically stable Vitals/I&O/Wt Last Vital Signs Temp 98.2 F 04/12/23 07:13 Pulse 113 H 04/12/23 07:13 Resp 18 04/12/23 07:13 BP 103/70 04/12/23 07:13 Pulse Ox 97 04/12/23 06:00 O2 Del Method Room Air 04/12/23 06:00 04/11/23 04/12/23 04/12/23 22:59 06:59 14:59 Intake Total 100 / 100 240 / 240 Output Total 375 / 375 500 / 500 Balance -275 / -275 -260 / -260 Weight last 48 hrs Weight 81.919 kg Physical Exam 2 Narrative: Awake and alert GCS 15 A-fib RVR Pleasant cough Euvolemic S1, S2 variable Doing well on room air Data 04/12/23 01:13 04/12/23 01:13 A&P Assessment and plan (1) Acute psychosis: (2) Brief psychotic disorder: (3) Paroxysmal atrial fibrillation with RVR: Plan Will increase the dose of metoprolol Add IV fluids, TSH is normal No need of anticoagulation [id number] score is extremely low Magnesium 1.9, potassium and COVID Drug screen reviewed Echo results are pending, no signs of PE Gallstone no active cholecystitis, bilirubin 1.8, monitor CMP Regular diet Full code Can be transferred to neuropsychiatric unit by tomorrow if heart rate improves Attestations 2 Medical Necessity Statement*: Continue medical management Diagnoses Acute psychosis F23 Brief psychotic disorder F23 Paroxysmal atrial fibrillation with RVR I48.0
[2023-04-12] MEDS: sodium chloride 0.9% 1,000 ML 75 ML IV (10:56)
[2023-04-12] MEDS: magnesium oxide 400 mg tablet PO (11:09)
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
--- NOTE | 2023-04-12 22:05 | PC.NURSE ---
Blake put in for a stat EKG. Patient stated he felt like his heart was racing and he was having chest pain.
--- NOTE | 2023-04-12 22:10 | ECG_ITS ---
[facility] Test Date: 2023-04-12 Pat Name: Elijah Patel Department: Room: 151 Gender: Male Utility Manager: : 2000 Requested By: Lorne Ryder Order Number: [id number] Marli MD: Jesse Ramos M.D. Measurements Intervals [place] Rate: 105 P: 74 MN: 123 QRS: -87 QRSD: 94 T: 73 QT: 321 QTc: 424 Interpretive Statements SINUS TACHYCARDIA INDETERMINATE AXIS INCOMPLETE RIGHT BUNDLE BRANCH BLOCK [90+ ms QRS DURATION, TERMINAL R IN V1/V2, 40+ ms S IN I/aVL/V4/V5/V6] Compared to ECG 04/12/2023 03:19:59 Incomplete right bundle-branch block now present Atrial fibrillation no longer present Aberrant conduction of supraventricular beat(s) no longer present Ventricular premature complex(es) no longer present Electronically Signed On 04-12-2023 23:08:45 PURSE FRAMER by Jesse Ramos M.D. [id number]
[2023-04-13] MEDS: OLANZapine 5 mg TABLET PO (03:42)
--- NOTE | 2023-04-13 06:29 | PC.NURSE ---
pt resting in bed after being up all night, vitals not done. respiration rate 15.
[2023-04-13] MEDS: metoprolol tartrate 25 mg Tablet 50 MG PO (08:09)
[2023-04-13] MEDS: magnesium oxide 400 mg tablet PO ×2 (08:09→17:18)
[2023-04-13 14:00] VITALS: BP 109/76; PULSE 104; RESP 16; TEMP 36.8; O2SAT 98
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
[2023-04-13] MEDS: OLANZapine 5 mg ODT PO (20:11)
[2023-04-13] MEDS: ibuprofen 200 mg Tablet 600 MG PO (20:12)
[2023-04-13 20:14] VITALS: BP 116/69; PULSE 94; RESP 20; TEMP 36.6; O2SAT 96
--- NOTE | 2023-04-13 21:04 | PC.NURSE ---
ASSESSMENT COMPLETED WALKING DOWN LEYVA REQUESTED BY PT. PT APPEARS TO HAVE A BRIGHT AND UPBEAT AFFECT THIS SHIFT. REPORTS HAVING A HEADACHE RATING PAIN 3/10, IBUPROFEN 600 MG WAS GIVEN ORDERED. PT REFUSED TO TAKE METOPROLOL ER 50 MG DUE TO HIS BP BEING 116/62. PT DID HOWEVER TAKE HIS SCHEDULED ZYDIS 5 MG. DENIES SI/HI AND AVH AT THIS TIME. RATES ANXIETY 2/10 AND DEPRESSION 0/10. PT IS CALM AND COOPERATIVE. ALL QUESTIONS ANSWERED AND SUPPORT WAS VOICED.
[2023-04-14 06:00] VITALS: BP 118/81; PULSE 110; RESP 18; TEMP 36.4; O2SAT 98
--- NOTE | 2023-04-14 06:29 | PC.NURSE ---
PT TOOK SCHEDULED ZYDIS 5 MG AT BEDTIME. PT WAS ABLE TO REST THROUGHOUT THE SHIFT SLEEPING APPROXIMATELY 8-9 HOURS THIS SHIFT.
[2023-04-14] MEDS: metoprolol tartrate 25 mg Tablet 50 MG PO ×2 (08:00→20:26)
[2023-04-14] MEDS: magnesium oxide 400 mg tablet PO ×2 (08:00→18:10)
[2023-04-14] MEDS: OLANZapine 5 mg TABLET PO (09:20)
--- NOTE | 2023-04-14 13:34 | ECG_ITS ---
[facility] Test Date: 2023-04-14 Pat Name: Elijah Patel Department: Room: 151 Gender: Male [employer]: : 2000 Requested By: Nuno Sr Order Number: [id number] Marli MD: Swapnil Huertas M.D. Measurements Intervals [place] Rate: 82 P: 31 ME: 119 QRS: 92 QRSD: 135 T: 63 QT: 341 QTc: 399 Interpretive Statements SINUS RHYTHM WITH SHORT ME INTERVAL BORDERLINE RIGHT AXIS DEVIATION [QRS AXIS > 90] INTRAVENTRICULAR CONDUCTION DELAY [130+ ms QRS DURATION] Compared to ECG 04/12/2023 22:10:54 Short ME interval now present Intraventricular conduction delay now present Sinus tachycardia no longer present Indeterminate axis no longer present Incomplete right bundle-branch block no longer present Electronically Signed On 04-14-2023 16:33:42 [employer]CHANDISER by Swapnil Huertas M.D. [id number]
[2023-04-14 13:35] VITALS: BP 120/72; PULSE 180
[2023-04-14 14:00] VITALS: RESP 18
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
--- NOTE | 2023-04-14 17:53 | PC.NURSE ---
Patient came up to this nurse stating that he had just had a lot of chest pain and that he was able to deal with it by himself. This nurse asked him what he did to cope. Patient said that he told himself that if it is his time to go then it's his time to go and that is okay. After he told himself this, patient reports feeling better, that the chest pain went away.
[2023-04-14 20:09] VITALS: BP 118/82; PULSE 119; RESP 18; TEMP 36.8; O2SAT 97
[2023-04-14] MEDS: OLANZapine 5 mg ODT 7.5 MG PO (20:26)
[2023-04-14] MEDS: ibuprofen 200 mg Tablet 600 MG PO (21:45)
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
[2023-04-15 06:00] VITALS: BP 119/80; PULSE 94; RESP 20; TEMP 36.5; O2SAT 99
[2023-04-15] MEDS: metoprolol tartrate 25 mg Tablet 50 MG PO ×2 (08:31→21:14)
[2023-04-15] MEDS: magnesium oxide 400 mg tablet PO ×2 (08:31→18:22)
[2023-04-15 14:00] VITALS: BP 125/82; PULSE 100; RESP 20; TEMP 36.6; O2SAT 97
--- NOTE | 2023-04-15 16:24 | P.NPUPN_ITS ---
Subjective NPU 2 Subjective: 22-year-old male with no prior psychiatric history admitted on a 96-hour hold with psychosis. The patient reported no akathisia today. He had taken Zyprexa as prescribed and reported improved sleep. He continued at times to ruminate about his suspicions and reported that his ideas would continue to put him in danger. He was social with his peers. He reported no mood symptoms at this time. He had expressed desire to go home soon. He had stated that he was ready to return to work. No aggression appreciated. Mental Status Exam 2 MSE Comments: Healthy white male who appeared his stated age with fair eye contact and normal gait. There was no evidence of any abnormal involuntary motor movements tics or tremors. He did appear to be internally preoccupied while pacing the [place]. His speech was normal in regards to volume, but with normal rate and no increase in latency. His mood was described as good. His affect remained blunted. There was continued ideas of reference. His thought process was linear and logical. His thought content showed no evidence of homicidal ideation and no suicidal ideation. There was evidence of continued paranoia. His insight is impaired. His judgment is poor. His impulse control appeared limited. He was alert and oriented to person place and time. Recent and remote memory were intact on interview. Vitals/I&O/Wt Last Vital Signs Temp 97.7 F 04/15/23 06:00 Pulse 94 04/15/23 06:00 Resp 20 H 04/15/23 06:00 BP 119/80 04/15/23 06:00 Pulse Ox 99 04/15/23 06:00 O2 Del Method Room Air 04/14/23 20:09 Data NPU 04/12/23 01:13 04/12/23 01:13 A&P Assessment and plan (1) Acute psychosis: (2) Brief psychotic disorder: Plan 22-year-old male who presents on a 96-hour hold acutely psychotic with significant paranoia along with some grandiosity involving having solved some mysterious mathematical equation leading to the patient feeling as if his life is in danger. He has no previous history of inpatient hospitalizations but likely benefit from continued hospital stay here. ?1. Encourage individual, group and milieu therapy. ?2.Recommend sober living treatment at the highest level of care to which the patient is willing to commit. 3.Continue q-15 minute checks for safety.? 4.Continue Zyprexa 7.5mg at night. Continue metoprolol 50mg bid. 5. 21 day hold filed. Involuntary Hold Information 2 96 Hour Hold: 96 Hour Involuntary Admission: Yes 96 Hour Hold Ending Date: 04/16/23 96 Hour Hold Ending Time: 09:29 Attestations NPU 2 Medical Necessity Statement*: Inpatient hospitalization is medically necessary and deemed to be the clinically appropriate intervention at this time. We will monitor initiate medications while making changes as indicated. Patient's likely length of stay is 4-6 days. Coding Level of Care Code Acute Code for [facility] Fwd Diagnoses Acute psychosis F23 Brief psychotic disorder F23
[2023-04-15] MEDS: OLANZapine 5 mg ODT 7.5 MG PO (21:14)
[2023-04-15 21:22] VITALS: BP 115/78; PULSE 89; RESP 20; TEMP 36.9; O2SAT 97
[2023-04-16 06:00] VITALS: BP 101/66; PULSE 92; RESP 18; TEMP 36.8; O2SAT 97
[2023-04-16] MEDS: metoprolol tartrate 25 mg Tablet 50 MG PO ×2 (09:00→21:49)
[2023-04-16] MEDS: nicotine 2 mg Gum BUCCAL (09:00)
[2023-04-16] MEDS: magnesium oxide 400 mg tablet PO ×2 (09:00→17:58)
[2023-04-16 14:00] VITALS: BP 117/73; PULSE 85; RESP 16; TEMP 36.6; O2SAT 98
--- NOTE | 2023-04-16 16:21 | P.NPUPN_ITS ---
Subjective NPU 2 Subjective: Patient presented today reporting that he is feeling better and may be as good as he is ever felt. He was able to talk about some of the errant thinking that he was having but chalked it up to sleep deprivation. 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 We talked about the 21-day hold hearing tomorrow. He discussed not thinking he needed to be here longer and not feeling like there was any thing more for him to get from an extended stay. We agreed we would talk about this more in the morning. Denied any side effects to the medication. Mental Status Exam 2 MSE Comments: This is a well-nourished well-developed white male in hospital scrubs with adequate grooming and eye contact. No abnormal movements except for mild psychomotor agitation. There was no evidence of any abnormal involuntary motor movements tics or tremors. Cooperative with exam in mild distress. His speech was normal in regards to volume, but with increased rate almost mildly pressured. His mood was described as much better. His affect was energetic but occasionally tearful when speaking about being away from his family. There was continued ideas of reference. His thought process was linear and mostly logical. His thought content showed no evidence of homicidal ideation and no suicidal ideation. There was evidence of continued paranoia and possibly yamel. He denied auditory or visual hallucinations. Attention and concentration were mostly intact and memory was somewhat reliable but none were formally tested. He is alert and oriented x 3. His insight is impaired. His judgment is poor. His impulse control appeared limited. Vitals/I&O/Wt Last Vital Signs Temp 98 F 04/16/23 14:00 Pulse 85 04/16/23 14:00 Resp 16 04/16/23 14:00 BP 117/73 04/16/23 14:00 Pulse Ox 98 04/16/23 14:00 O2 Del Method Room Air 04/16/23 14:00 Data NPU 04/12/23 01:13 04/12/23 01:13 A&P Assessment and plan (1) Acute psychosis: (2) Brief psychotic disorder: (3) Yamel: Plan 22-year-old male who presents on a 96-hour hold acutely psychotic with significant paranoia along with some grandiosity involving having solved some mysterious mathematical equation leading to the patient feeling as if his life is in danger. He has no previous history of inpatient hospitalizations but likely benefit from continued hospital stay here. ?1. Encourage individual, group and milieu therapy. ?2.Recommend sober living treatment at the highest level of care to which the patient is willing to commit. 3.Continue q-15 minute checks for safety.? 4.Continue Zyprexa 7.5mg at night. Continue metoprolol 50mg bid. Consider increasing Zyprexa. 5. 21 day hold filed. Hearing tomorrow @1400. Involuntary Hold Information 2 96 Hour Hold: 96 Hour Involuntary Admission: Yes 96 Hour Hold Ending Date: 04/16/23 96 Hour Hold Ending Time: 09:29 Attestations NPU 2 Medical Necessity Statement*: Inpatient hospitalization is medically necessary and deemed to be the clinically appropriate intervention at this time. We will monitor initiate medications while making changes as indicated. Patient's likely length of stay is 4-6 days. Coding Level of Care Code Acute Code for [facility] Fwd Diagnoses Acute psychosis F23 Brief psychotic disorder F23 Yamel F30.9
[2023-04-16 21:09] VITALS: BP 115/77; PULSE 99; RESP 20; O2SAT 97
[2023-04-16] MEDS: OLANZapine 5 mg ODT 7.5 MG PO (21:49)
--- NOTE | 2023-04-16 22:26 | PC.NURSE ---
PT DENIES SI/HI AND AH AT THIS TIME. RATES ANXIETY AND DEPRESSION 0/10. PT REQUESTED DRUG INFORMATION EDUCATION ON METOPROLOL, CARE NOTES GIVEN AND PT SIGNED PAPER. PT CONTINUES TO BE PARANOID ABOUT WRITING HIS NAME, HE BELIEVES IT WILL BE COPIED PT ASSURED THE PAPERWORK GOES INTO HIS CHART AND RN SIGNS HER NAME WELL. ALL QUESTIONS ANSWERED AND SUPPORT WAS VOICED. DENIES PAIN.
[2023-04-17 06:00] VITALS: BP 111/68; PULSE 86; RESP 18; TEMP 36.7; O2SAT 98
--- NOTE | 2023-04-17 06:30 | PC.NURSE ---
PT SLEPT APPROXIMATELY 7-8 HOURS THIS SHIFT. WAS RESTLESS BRIEFLY LAST NIGHT DUE TO INCREASED ROOM TEMPERATURE. NURSE TECH ADJUSTED HEAT AND PT WAS ABLE TO EVENTUALLY LAY DOWN AND REST.
[2023-04-17] MEDS: metoprolol tartrate 25 mg Tablet 50 MG PO ×2 (08:43→20:10)
[2023-04-17] MEDS: magnesium oxide 400 mg tablet PO ×2 (08:43→17:17)
[2023-04-17] MEDS: nicotine 2 mg Gum BUCCAL ×2 (12:01→17:43)
[2023-04-17 14:00] VITALS: BP 106/57; PULSE 86; RESP 16; TEMP 36.6; O2SAT 97
--- NOTE | 2023-04-17 15:56 | P.NPUPN_ITS ---
Subjective NPU 2 Subjective: Patient presented today reporting that he is doing okay. He is accepting of the fact that he was placed on a 21-day hold in hopes of managing what is even being acknowledged by him as delusions and yamel but he quickly shifts and tries to articulate vet there are some things that might be delusional but most of his thoughts are correct. He continues to talk about being really smart and having a significant discovery that is going to change the world and physics and otherwise. Concerns about him being adherent to medication exist as he acknowledges that he does have an engine that arrives at high speed and that he is afraid that the medication might slow down his engine too much as he argues that having a engine such as this is necessary for maximizing effectiveness in his job functioning and creativity. We discussed the risks, benefits and alternatives of initiating a medication that can have a long-acting injectable component, specifically Invega given concerns for his and adherence and he understood and agreed to proceed as is documented in this note. Mental Status Exam 2 MSE Comments: This is a well-nourished well-developed white male in hospital scrubs with adequate grooming and eye contact. No abnormal movements except for mild psychomotor agitation. There was no evidence of any abnormal involuntary motor movements tics or tremors. Cooperative with exam in mild distress. His speech was normal in regards to volume, but with increased rate/mildly pressured. His mood was described as much better. His affect was energetic/manic. There was continued ideas of reference. His thought process was linear and mostly logical. His thought content showed no evidence of homicidal ideation and no suicidal ideation. There was evidence of continued paranoia and yamel. He denied auditory or visual hallucinations. Attention and concentration were mostly intact and memory was somewhat reliable but none were formally tested. He is alert and oriented x 3. His insight is impaired. His judgment is poor. His impulse control appeared limited. Vitals/I&O/Wt Last Vital Signs Temp 97.9 F 04/17/23 14:00 Pulse 86 04/17/23 14:00 Resp 16 04/17/23 14:00 BP 106/57 04/17/23 14:00 Pulse Ox 97 04/17/23 14:00 O2 Del Method Room Air 04/17/23 06:00 Data NPU 04/12/23 01:13 04/12/23 01:13 A&P Assessment and plan (1) Acute psychosis: (2) Brief psychotic disorder: (3) Yamel: Plan 22-year-old male who presents on a 96-hour hold acutely psychotic with significant paranoia along with some grandiosity involving having solved some mysterious mathematical equation leading to the patient feeling as if his life is in danger. He has no previous history of inpatient hospitalizations but likely benefit from continued hospital stay here. ?1. Encourage individual, group and milieu therapy. ?2.Recommend sober living treatment at the highest level of care to which the patient is willing to commit. 3.Continue q-15 minute checks for safety.? 4.Continue Zyprexa 7.5mg at night. Continue metoprolol 50mg bid. Consider increasing Zyprexa. Trial of Invega 3-6 mg to start in the morning. 5. 21 day hold filed. 21-day hold granted today 04/17/2023. Involuntary Hold Information 2 96 Hour Hold: 96 Hour Involuntary Admission: Yes 96 Hour Hold Ending Date: 04/16/23 96 Hour Hold Ending Time: 09:29 Attestations NPU 2 Medical Necessity Statement*: Inpatient hospitalization is medically necessary and deemed to be the clinically appropriate intervention at this time. We will monitor initiate medications while making changes as indicated. Patient's likely length of stay is 4-6 days. Coding Level of Care Code Acute Code for [facility] Diagnoses Acute psychosis F23 Brief psychotic disorder F23 Yamel F30.9
[2023-04-17] MEDS: OLANZapine 5 mg ODT 7.5 MG PO (20:39)
[2023-04-17 20:41] VITALS: BP 91/57; PULSE 106; RESP 18; TEMP 36.8; O2SAT 98
--- NOTE | 2023-04-18 04:42 | PC.NURSE ---
PT TOOK SCHEDULED MEDICATIONS ORDERED. PT CONTINUES TO HAVE PARANOIA BELIEVES THERE IS MOLD GROWING IN HIS ROOM AT TIME. PT WAS ABLE TO REST THIS SHIFT AND HAS SLEPT APPROXIMATELY 7-8 HOURS THIS SHIFT. SUPPORT VOICED.
[2023-04-18 06:00] VITALS: BP 104/61; PULSE 88; RESP 18; TEMP 36.8; O2SAT 98
[2023-04-18] MEDS: metoprolol tartrate 25 mg Tablet 50 MG PO ×2 (08:00→20:22)
[2023-04-18] MEDS: magnesium oxide 400 mg tablet PO ×2 (08:00→17:19)
[2023-04-18] MEDS: nicotine 2 mg Gum BUCCAL ×4 (08:12→20:22)
[2023-04-18] MEDS: paliperidone ER 3 mg Tablet PO (11:30)
[2023-04-18 14:00] VITALS: BP 94/56; PULSE 88; RESP 17; TEMP 36.7; O2SAT 97
--- NOTE | 2023-04-18 17:52 | P.NPUPN_ITS ---
Subjective NPU 2 Subjective: Patient presented today reporting that he is feeling fine. He reports that he now appreciates his manic behavior and reported that he got the Invega today and that it has been really helpful and he believes that he is already felt his engine decreased revving. We discussed the medication taking time and that we would continue to monitor and identify improvements as indicated. He denies any side effects to any of the medication. Mental Status Exam 2 MSE Comments: This is a well-nourished well-developed white male in hospital scrubs with adequate grooming and eye contact. No abnormal movements except for mild psychomotor agitation. There was no evidence of any abnormal involuntary motor movements tics or tremors. Cooperative with exam in mild distress. His speech was normal in regards to volume, but with increased rate/mildly pressured. His mood was described as much better. His affect was energetic/manic. There was continued ideas of reference. His thought process was linear and mostly logical. His thought content showed no evidence of homicidal ideation and no suicidal ideation. There was evidence of continued paranoia and yamel. He denied auditory or visual hallucinations. Attention and concentration were mostly intact and memory was somewhat reliable but none were formally tested. He is alert and oriented x 3. His insight is impaired. His judgment is poor. His impulse control appeared limited. Vitals/I&O/Wt Last Vital Signs Temp 98.0 F 04/18/23 14:00 Pulse 88 04/18/23 14:00 Resp 17 04/18/23 14:00 BP 94/56 04/18/23 14:00 Pulse Ox 97 04/18/23 14:00 O2 Del Method Room Air 04/18/23 06:00 04/18/23 04/18/23 04/18/23 06:59 14:59 22:59 Intake Total 240 / 240 Output Total 500 / 500 Balance -260 / -260 Data NPU 04/12/23 01:13 04/12/23 01:13 A&P Assessment and plan (1) Acute psychosis: (2) Brief psychotic disorder: (3) Yamel: Plan 22-year-old male who presents on a 96-hour hold acutely psychotic with significant paranoia along with some grandiosity involving having solved some mysterious mathematical equation leading to the patient feeling as if his life is in danger. He has no previous history of inpatient hospitalizations but likely benefit from continued hospital stay here. ?1. Encourage individual, group and milieu therapy. ?2.Recommend sober living treatment at the highest level of care to which the patient is willing to commit. 3.Continue q-15 minute checks for safety.? 4.Continue Zyprexa 7.5mg at night. Continue metoprolol 50mg bid. Consider increasing Zyprexa. Started Invega 3 mg p.o. daily and will likely increase to 6 mg tomorrow. 5. 21 day hold filed. 21-day hold granted today 04/17/2023. Involuntary Hold Information 2 96 Hour Hold: 96 Hour Involuntary Admission: Yes 96 Hour Hold Ending Date: 04/16/23 96 Hour Hold Ending Time: 09:29 Attestations NPU 2 Medical Necessity Statement*: Inpatient hospitalization is medically necessary and deemed to be the clinically appropriate intervention at this time. We will monitor initiate medications while making changes as indicated. Patient's likely length of stay is 4-6 days. Coding Level of Care Code Acute Code for [facility] Fwd Diagnoses Acute psychosis F23 Brief psychotic disorder F23 Yamel F30.9
[2023-04-18 20:05] VITALS: BP 108/65; PULSE 103; RESP 16; TEMP 36.5; O2SAT 95
[2023-04-18] MEDS: OLANZapine 5 mg ODT 7.5 MG PO (20:22)
--- NOTE | 2023-04-18 21:30 | PC.NURSE ---
ASSESSMENT COMPLETED. PT STATES THE MEDICATION I STARTED TODAY WORKS REALLY GOOD, I ALREADY FEEL BETTER. RN GAVE MORE EDUCATION ON THE INVEGA AND INFORMED PT IT COMES IN A SHOT. PT GOT EXCITED AND STATED I'M WILLING TO DO THAT IF THAT MEANS I CAN LEAVE SOONER. PT WAS INFORMED IT HAS NOT BEEN ORDERED YET BUT IT MAY BE A POSSIBILITY TO DISCUSS WITH THE DR. PT DENIES PAIN. DENIES SI/HI AND AVH AT THIS. RATES ANXIETY AND DEPRESSION 0/10. ALL QUESTIONS WERE ANSWERED AND SUPPORT WAS VOICED.
[2023-04-19 06:00] VITALS: BP 102/68; PULSE 97; RESP 18; TEMP 36.6; O2SAT 97
[2023-04-19] MEDS: nicotine 2 mg Gum BUCCAL ×4 (06:43→18:39)
[2023-04-19] MEDS: magnesium oxide 400 mg tablet PO ×2 (09:31→17:26)
[2023-04-19] MEDS: metoprolol tartrate 25 mg Tablet 50 MG PO ×2 (09:31→20:26)
[2023-04-19] MEDS: paliperidone ER 3 mg Tablet 6 MG PO (09:31)
--- NOTE | 2023-04-19 11:12 | P.NPUPN_ITS ---
Subjective NPU 2 Subjective: Patient presented today reporting that initially he was feeling challenged by the increase in Invega to 6 mg p.o. daily. He reported the possibility of increased pulse secondary to the medication change. We discussed being doubtful that that was the cause of his false elevation and that the greater likelihood is him pacing the hallways and having anxious thoughts about the medication change. He denied any other concerns for side effects from his medications and continues to report that his yamel has resolved and we continue to discuss that it appears to be having some improvement but still present. Mental Status Exam 2 MSE Comments: This is a well-nourished well-developed white male in hospital scrubs with adequate grooming and eye contact. No abnormal movements except for mild psychomotor agitation. There was no evidence of any abnormal involuntary motor movements tics or tremors. Cooperative with exam in mild distress. His speech was normal in regards to volume, but with increased rate/mildly pressured. His mood was described as much better. His affect was energetic/manic. There was continued ideas of reference. His thought process was linear and mostly logical. His thought content showed no evidence of homicidal ideation and no suicidal ideation. There was evidence of continued paranoia and yamel. He denied auditory or visual hallucinations. Attention and concentration were mostly intact and memory was somewhat reliable but none were formally tested. He is alert and oriented x 3. His insight is impaired. His judgment is poor. His impulse control appeared limited. Vitals/I&O/Wt Last Vital Signs Temp 97.8 F 04/19/23 06:00 Pulse 97 04/19/23 06:00 Resp 18 04/19/23 06:00 BP 102/68 04/19/23 06:00 Pulse Ox 97 04/19/23 06:00 O2 Del Method Room Air 04/19/23 06:00 Weight last 48 hrs Weight 71.384 kg Data NPU 04/12/23 01:13 04/12/23 01:13 A&P Assessment and plan (1) Acute psychosis: (2) Brief psychotic disorder: (3) Yamel: Plan 22-year-old male who presents on a 96-hour hold acutely psychotic with significant paranoia along with some grandiosity involving having solved some mysterious mathematical equation leading to the patient feeling as if his life is in danger. He has no previous history of inpatient hospitalizations but likely benefit from continued hospital stay here. ?1. Encourage individual, group and milieu therapy. ?2.Recommend sober living treatment at the highest level of care to which the patient is willing to commit. 3.Continue q-15 minute checks for safety.? 4.Continue Zyprexa 7.5mg at night. Continue metoprolol 50mg bid. Consider increasing Zyprexa. Started Invega 3 mg p.o. daily and increased to 6 mg. 5. 21 day hold filed. 21-day hold granted 04/17/2023. Involuntary Hold Information 2 96 Hour Hold: 96 Hour Involuntary Admission: Yes 96 Hour Hold Ending Date: 04/16/23 96 Hour Hold Ending Time: 09:29 Attestations NPU 2 Medical Necessity Statement*: Inpatient hospitalization is medically necessary and deemed to be the clinically appropriate intervention at this time. We will monitor initiate medications while making changes as indicated. Patient's likely length of stay is 4-6 days. Coding Level of Care Code Acute Code for [facility] Fwd Diagnoses Acute psychosis F23 Brief psychotic disorder F23 Yamel F30.9
[2023-04-19 14:00] VITALS: BP 108/75; PULSE 97; RESP 17; TEMP 36.9; O2SAT 97
[2023-04-19] MEDS: OLANZapine 5 mg ODT 7.5 MG PO (20:26)
[2023-04-19] MEDS: nicotine 4 mg lozenge MUCOUS MEM (20:26)
[2023-04-19 20:30] VITALS: BP 105/53; PULSE 107; RESP 18; TEMP 36.9; O2SAT 95
--- NOTE | 2023-04-19 21:18 | PC.NURSE ---
PT DENIES PAIN. DENIES SI/HI AND AVH AT THIS TIME. RATES ANXIETY 1/10 AND DEPRESSION 0/10. PPT STATES HE IS DOING BREATHING EXERCISES AND DOES NOT NEED A PRN FOR ANXIETY. PT UPBEAT UP AND INTERACTIING WITH PEERS IN HAPPY AND CONTENT MOOD. ALL QUESTIONS ANSWERED AND SUPPORT VOICED.
[2023-04-20 06:00] VITALS: BP 94/64; PULSE 95; RESP 18; TEMP 36.5; O2SAT 98
--- NOTE | 2023-04-20 06:29 | PC.NURSE ---
PT DID REQUIRE ANY PRN MEDICATIONS THIS SHIFT, DID RECEIVE SCHEDULED DOSE OF ZYDIS 7.5 MG, PT WAS UP 2-3 TIMES DURING THE NIGHT. PT SLEPT APPROXIMATELY 8-9 HOURS THIS SHIFT. PT IS UP AND IN DAY ROOM SPEAKING TO PEERS AND STAFF. NO DISTRESS NOTED AT THIS TIME.
[2023-04-20] MEDS: nicotine 4 mg lozenge MUCOUS MEM ×5 (08:21→18:47)
[2023-04-20] MEDS: metoprolol tartrate 25 mg Tablet 50 MG PO (08:21)
[2023-04-20] MEDS: magnesium oxide 400 mg tablet PO ×2 (08:21→20:23)
[2023-04-20] MEDS: paliperidone ER 3 mg Tablet 6 MG PO (08:21)
--- NOTE | 2023-04-20 12:55 | P.NPUPN_ITS ---
Subjective NPU 2 Subjective: Patient presented today reporting that he is doing better. Staff reports of less significant pressure. He reports that he is doing well on the Invega and that he is open to the possibility of taking a long-acting injectable. He continues to focus on when discharged might happen and denied any side effects to his medication. Mental Status Exam 2 MSE Comments: This is a well-nourished well-developed white male in hospital scrubs with adequate grooming and eye contact. No abnormal movements except for mild psychomotor agitation. There was no evidence of any abnormal involuntary motor movements tics or tremors. Cooperative with exam in mild distress. His speech was normal in regards to volume. His mood was described as much better. His affect was energetic/manic. There was continued ideas of reference. His thought process was linear and mostly logical. His thought content showed no evidence of homicidal ideation and no suicidal ideation. There was evidence of continued paranoia and yamel. He denied auditory or visual hallucinations. Attention and concentration were mostly intact and memory was somewhat reliable but none were formally tested. He is alert and oriented x 3. His insight is impaired. His judgment is poor. His impulse control appeared limited. Vitals/I&O/Wt Last Vital Signs Temp 97.7 F 04/20/23 06:00 Pulse 95 04/20/23 06:00 Resp 18 04/20/23 06:00 BP 94/64 04/20/23 06:00 Pulse Ox 98 04/20/23 06:00 O2 Del Method Room Air 04/19/23 20:30 Weight last 48 hrs Weight 71.384 kg Data NPU 04/12/23 01:13 04/12/23 01:13 A&P Assessment and plan (1) Acute psychosis: (2) Brief psychotic disorder: (3) Yamel: Plan 22-year-old male who presents on a 96-hour hold acutely psychotic with significant paranoia along with some grandiosity involving having solved some mysterious mathematical equation leading to the patient feeling as if his life is in danger. He has no previous history of inpatient hospitalizations but likely benefit from continued hospital stay here. ?1. Encourage individual, group and milieu therapy. ?2.Recommend sober living treatment at the highest level of care to which the patient is willing to commit. 3.Continue q-15 minute checks for safety.? 4.Continue Zyprexa 7.5mg at night. Continue metoprolol 50mg bid. Consider increasing Zyprexa. Started Invega 3 mg p.o. daily and increased to 6 mg. Will consider Invega Sustenna. 5. 21 day hold filed. 21-day hold granted 04/17/2023. Involuntary Hold Information 2 96 Hour Hold: 96 Hour Involuntary Admission: Yes 96 Hour Hold Ending Date: 04/16/23 96 Hour Hold Ending Time: 09:29 Attestations NPU 2 Medical Necessity Statement*: Inpatient hospitalization is medically necessary and deemed to be the clinically appropriate intervention at this time. We will monitor initiate medications while making changes as indicated. Patient's likely length of stay is 3-5 days. Coding Level of Care Code Acute Code for [facility] Fwd Diagnoses Acute psychosis F23 Brief psychotic disorder F23 Yamel F30.9
[2023-04-20 14:00] VITALS: BP 98/52; PULSE 100; RESP 16; TEMP 36.8; O2SAT 97
[2023-04-20 20:04] VITALS: BP 96/53; PULSE 107; RESP 18; TEMP 36.9; O2SAT 98
[2023-04-20] MEDS: OLANZapine 5 mg ODT 7.5 MG PO (20:23)
[2023-04-21 06:00] VITALS: BP 94/59; PULSE 93; RESP 16; TEMP 36.8; O2SAT 97
--- NOTE | 2023-04-21 07:55 | PC.NURSE ---
During morning shift assessment, patient stated that he slept fantastic. Patient went on to say that he slept so well because he stopped listening to his heart at night. Patient stated that he thinks this is why he was having chest pain, previously.
[2023-04-21] MEDS: magnesium oxide 400 mg tablet PO ×2 (08:18→19:28)
[2023-04-21] MEDS: metoprolol tartrate 25 mg Tablet 50 MG PO (08:18)
[2023-04-21] MEDS: paliperidone ER 3 mg Tablet 6 MG PO (08:18)
[2023-04-21] MEDS: nicotine 4 mg lozenge MUCOUS MEM ×4 (08:28→19:29)
[2023-04-21 14:00] VITALS: BP 119/76; PULSE 107; RESP 18; TEMP 36.6; O2SAT 98
--- NOTE | 2023-04-21 15:39 | P.NPUPN_ITS ---
Subjective NPU 2 Subjective: Patient presented today reporting continued improvement with some clear signs of decreased energy per staff reports and direct observation. We discussed his improvement and the likelihood of discharge possibly before the weekend. We discussed the risks, benefits and alternatives of him starting Invega Sustenna 234 mg IM loading dose and he understood and agreed to proceed as is documented in this note he denied any side effects of the medication. Mental Status Exam 2 MSE Comments: This is a well-nourished well-developed white male in hospital scrubs with adequate grooming and eye contact. No abnormal movements except for mild psychomotor agitation. There was no evidence of any abnormal involuntary motor movements tics or tremors. Cooperative with exam in mild distress. His speech was more normal in regards to rate and volume. His mood was described as much better. His affect was more calm. There was continued ideas of reference. His thought process was linear and mostly logical. His thought content showed no evidence of homicidal ideation and no suicidal ideation. There was evidence of continued paranoia and yamel but this was lessening. He denied auditory or visual hallucinations. Attention and concentration were mostly intact and memory was somewhat reliable but none were formally tested. He is alert and oriented x 3. His insight is impaired. His judgment is poor. His impulse control appeared limited. Vitals/I&O/Wt Last Vital Signs Temp 98 F 04/21/23 14:00 Pulse 107 H 04/21/23 14:00 Resp 18 04/21/23 14:00 BP 119/76 04/21/23 14:00 Pulse Ox 98 04/21/23 14:00 O2 Del Method Room Air 04/19/23 20:30 Data NPU 04/12/23 01:13 04/12/23 01:13 A&P Assessment and plan (1) Acute psychosis: (2) Brief psychotic disorder: (3) Yamel: Plan 22-year-old male who presents on a 96-hour hold acutely psychotic with significant paranoia along with some grandiosity involving having solved some mysterious mathematical equation leading to the patient feeling as if his life is in danger. He has no previous history of inpatient hospitalizations but likely benefit from continued hospital stay here. ?1. Encourage individual, group and milieu therapy. ?2.Recommend sober living treatment at the highest level of care to which the patient is willing to commit. 3.Continue q-15 minute checks for safety.? 4.Continue Zyprexa 7.5mg at night. Continue metoprolol 50mg bid. Consider increasing Zyprexa. Started Invega 3 mg p.o. daily and increased to 6 mg. Invega Sustenna 234 mg IM loading dose to the deltoid given today 04/21/2023. 5. 21 day hold filed. 21-day hold granted 04/17/2023. Involuntary Hold Information 2 96 Hour Hold: 96 Hour Involuntary Admission: Yes 96 Hour Hold Ending Date: 04/16/23 96 Hour Hold Ending Time: 09:29 Attestations NPU 2 Medical Necessity Statement*: Inpatient hospitalization is medically necessary and deemed to be the clinically appropriate intervention at this time. We will monitor initiate medications while making changes as indicated. Patient's likely length of stay is 2-4 days. Coding Level of Care Code Acute Code for [facility] Fwd Diagnoses Acute psychosis F23 Brief psychotic disorder F23 Yamel F30.9
[2023-04-21] MEDS: paliperidone palmitate 234 mg Syringe IM (15:45)
[2023-04-21] MEDS: OLANZapine 5 mg ODT 7.5 MG PO (19:28)
[2023-04-21 20:42] VITALS: BP 93/63; PULSE 96; RESP 18; TEMP 36.8; O2SAT 97
[2023-04-21] MEDS: hyDROXYzine 25 mg Capsule 50 MG PO (20:45)
[2023-04-22 06:00] VITALS: BP 93/58; PULSE 136; RESP 18; TEMP 36.6; O2SAT 97
--- NOTE | 2023-04-22 06:45 | P.NPUPN_ITS ---
Subjective NPU 2 Subjective: Reporting that he is doing okay. Nursing reports that he has been very focused on somatic issues in the last several days. At 1 point he had expressed having a assisted nose for mold but then was able to identify that maybe he was just having some allergies and dust sensitivity. Today he was very focused on feeling like he was having a allergic response wanted Vistaril which she takes at home. We discussed that Dr. rS would be here tomorrow and evaluating him for safety for discharge. We discussed him getting the Invega Sustenna injection yesterday should help. Expiratory today. Mental Status Exam 2 MSE Comments: This is a well-nourished well-developed white male in hospital scrubs with adequate grooming and eye contact. No abnormal movements except for mild psychomotor agitation. There was no evidence of any abnormal involuntary motor movements tics or tremors. Cooperative with exam in mild distress. His speech was more normal in regards to rate and volume. His mood was described as much better. His affect was more calm. There was continued ideas of reference. His thought process was linear and mostly logical. His thought content showed no evidence of homicidal ideation and no suicidal ideation. There was evidence of continued paranoia and yamel but this was lessening. She is additionally having some somatic focusing including his breathing. He denied auditory or visual hallucinations. Attention and concentration were mostly intact and memory was somewhat reliable but none were formally tested. He is alert and oriented x 3. His insight is impaired. His judgment is poor. His impulse control appeared limited. Vitals/I&O/Wt Last Vital Signs Temp 97.9 F 04/22/23 06:00 Pulse 136 H 04/22/23 06:00 Resp 18 04/22/23 06:00 BP 93/58 04/22/23 06:00 Pulse Ox 97 04/22/23 06:00 O2 Del Method Room Air 04/22/23 06:00 Data NPU 04/12/23 01:13 04/12/23 01:13 A&P Assessment and plan (1) Acute psychosis: (2) Brief psychotic disorder: (3) Yamel: Plan 22-year-old male who presents on a 96-hour hold acutely psychotic with significant paranoia along with some grandiosity involving having solved some mysterious mathematical equation leading to the patient feeling as if his life is in danger. He has no previous history of inpatient hospitalizations but likely benefit from continued hospital stay here. ?1. Encourage individual, group and milieu therapy. ?2.Recommend sober living treatment at the highest level of care to which the patient is willing to commit. 3.Continue q-15 minute checks for safety.? 4.Continue Zyprexa 7.5mg at night. Continue metoprolol 50mg bid. Consider increasing Zyprexa. Started Invega 3 mg p.o. daily and increased to 6 mg. Invega Sustenna 234 mg IM loading dose to the deltoid given 04/21/2023. 5. 21 day hold filed. 21-day hold granted 04/17/2023. Involuntary Hold Information 2 96 Hour Hold: 96 Hour Involuntary Admission: Yes 96 Hour Hold Ending Date: 04/16/23 96 Hour Hold Ending Time: 09:29 Attestations NPU 2 Medical Necessity Statement*: Inpatient hospitalization is medically necessary and deemed to be the clinically appropriate intervention at this time. We will monitor initiate medications while making changes as indicated. Patient's likely length of stay is 2-4 days. Coding Level of Care Code Acute Code for [facility] Fwd Diagnoses Acute psychosis F23 Brief psychotic disorder F23 Yamel F30.9
[2023-04-22] MEDS: nicotine 4 mg lozenge MUCOUS MEM ×5 (06:47→18:46)
[2023-04-22] MEDS: paliperidone ER 3 mg Tablet 6 MG PO (08:17)
[2023-04-22] MEDS: magnesium oxide 400 mg tablet PO ×2 (08:17→20:15)
[2023-04-22] MEDS: metoprolol tartrate 25 mg Tablet 50 MG PO ×2 (08:18→20:17)
[2023-04-22] MEDS: hyDROXYzine 25 mg Capsule 50 MG PO ×2 (08:48→18:46)
--- NOTE | 2023-04-22 09:33 | PC.NURSE ---
PRN MED PT GIVAN 50MG VISTARIL FOR ALLERGIES, WILL CONTINUE TO MONITOR.
[2023-04-22 12:38] VITALS: BP 114/71; PULSE 107; RESP 16; TEMP 36.8; O2SAT 99
[2023-04-22] MEDS: OLANZapine 5 mg ODT 7.5 MG PO (20:15)
[2023-04-22 20:46] VITALS: BP 110/62; PULSE 114; RESP 20; TEMP 36.5; O2SAT 99
[2023-04-23 06:00] VITALS: BP 119/75; PULSE 106; RESP 18; O2SAT 97
[2023-04-23] MEDS: nicotine 4 mg lozenge MUCOUS MEM ×3 (07:17→15:20)
[2023-04-23] MEDS: metoprolol tartrate 25 mg Tablet 50 MG PO ×2 (07:17→20:13)
[2023-04-23] MEDS: hyDROXYzine 25 mg Capsule 50 MG PO (07:17)
[2023-04-23] MEDS: paliperidone ER 3 mg Tablet 6 MG PO (07:17)
[2023-04-23] MEDS: magnesium oxide 400 mg tablet PO ×2 (07:18→20:12)
[2023-04-23 13:51] VITALS: BP 123/67; PULSE 106; RESP 14; TEMP 36.3; O2SAT 97
--- NOTE | 2023-04-23 17:38 | W.PM.NPUPNS ---
Subjective NPU Subjective: 22-year-old male admitted with psychosis and likely yamel. He reported no side effects from his Invega at this time. He had received his intramuscular Invega on 04/21/2023. He had continued to express having concerns about allergies here. He had stated that he would like to stay with his mother upon discharge home. He had stated that he was concerned that being here was making it worse as he stated that he was depressed and had not seen his girlfriend in several days. He had been more redirectable and pleasant with no acts of aggression noted. The patient reported no feelings of hopelessness. He reported adequate appetite. He had not made any comments regarding any special abilities to the commercial insurance underwriter of this note today. Mental Status Exam MSE Comments: This is a well-nourished well-developed white male in hospital scrubs with adequate grooming and eye contact. No abnormal movements except for mild psychomotor agitation. There was no evidence of any abnormal involuntary motor movements tics or tremors. He was cooperative with exam in mild distress. His speech was more normal in regards to rate and volume. His mood was described as better. His affect was euthymic. There was less overt ideas of reference. His thought process was linear and mostly logical. His thought content showed no evidence of homicidal ideation and no suicidal ideation. There was evidence less overt paranoia noted. He denied auditory or visual hallucinations. Attention and concentration were mostly intact and memory was somewhat reliable but none were formally tested. He is alert and oriented x 3. His insight was improving. His judgment remained poor. His impulse control appeared limited. Vitals/I&O/Wt Last Vital Signs Temp 97.4 F L 04/23/23 13:51 Pulse 106 H 04/23/23 13:51 Resp 14 04/23/23 13:51 BP 123/67 04/23/23 13:51 Pulse Ox 97 04/23/23 13:51 O2 Del Method Room Air 04/23/23 06:00 Data NPU 04/12/23 01:13 04/12/23 01:13 A&P Assessment and plan (1) Acute psychosis: (2) Brief psychotic disorder: (3) Yamel: Plan 22-year-old male who presents on a 96-hour hold acutely psychotic with significant paranoia along with some grandiosity involving having solved some mysterious mathematical equation leading to the patient feeling as if his life is in danger. He has no previous history of inpatient hospitalizations but likely benefit from continued hospital stay here. ?1. Encourage individual, group and milieu therapy. ?2.Recommend sober living treatment at the highest level of care to which the patient is willing to commit. 3.Continue q-15 minute checks for safety.? 4. Decrease zyprexa to 5mg at night. Continue metoprolol 50mg bid. Continue invega 6mg at night Invega Sustenna 234 mg IM loading dose to the deltoid given 04/21/2023. 5. 21 day hold filed. 21-day hold granted 04/17/2023. Involuntary Hold Information 96 Hour Hold: 96 Hour Involuntary Admission: Yes 96 Hour Hold Ending Date: 04/16/23 96 Hour Hold Ending Time: 09:29 Attestations NPU Medical Necessity Statement*: Inpatient hospitalization is medically necessary and deemed to be the clinically appropriate intervention at this time. We will monitor initiate medications while making changes as indicated. Patient's likely length of stay is 3-5 days. Coding Level of Care Code Acute Code for [facility] Fwd Diagnoses Acute psychosis F23 Brief psychotic disorder F23 Yamel F30.9
[2023-04-23] MEDS: OLANZapine 5 mg ODT PO (20:12)
[2023-04-23 20:22] VITALS: BP 101/68; PULSE 106; RESP 18; TEMP 36.7; O2SAT 96
[2023-04-24 06:00] VITALS: BP 99/57; PULSE 104; RESP 16; TEMP 37.1; O2SAT 98
[2023-04-24] MEDS: nicotine 4 mg lozenge MUCOUS MEM ×3 (06:21→11:09)
[2023-04-24] MEDS: magnesium oxide 400 mg tablet PO ×2 (08:01→20:28)
[2023-04-24] MEDS: paliperidone ER 3 mg Tablet 6 MG PO (08:01)
[2023-04-24] MEDS: metoprolol tartrate 25 mg Tablet 50 MG PO (08:01)
[2023-04-24 08:04] VITALS: BP 120/73; PULSE 106; RESP 18; O2SAT 98
[2023-04-24] MEDS: nicotine 2 mg Gum BUCCAL ×2 (13:17→15:48)
[2023-04-24 14:00] VITALS: BP 110/65; PULSE 96; RESP 13; TEMP 36.6; O2SAT 99
--- NOTE | 2023-04-24 15:16 | P.NPUPN_ITS ---
Subjective NPU 2 Subjective: 22-year-old male admitted with psychosis and likely yamel. He reported no side effects from his Invega at this time. He had received his intramuscular Invega on 04/21/2023. the patient had acknowledged that he may have been manic when he had come into the hospital. He had reported significant sleep deprivation. He reported that he was feeling better and did not feel as if others were attempting to harm him. Patient had no acts of aggression on the unit. Mental Status Exam 2 MSE Comments: This is a well-nourished well-developed white male in hospital scrubs with adequate grooming and eye contact. No abnormal movements except for mild psychomotor retardation. There was no evidence of any abnormal involuntary motor movements tics or tremors. He was cooperative with exam in mild distress. His speech was more normal in regards to rate and volume. His mood was described as better. His affect was euthymic. There was less overt ideas of reference. His thought process was linear and mostly logical. His thought content showed no evidence of homicidal ideation and no suicidal ideation. There was evidence less overt paranoia noted. He denied auditory or visual hallucinations. Attention and concentration were mostly intact and memory was somewhat reliable but none were formally tested. He is alert and oriented x 3. His insight was improving. His judgment remained poor. His impulse control appeared limited. Vitals/I&O/Wt Last Vital Signs Temp 98.8 F 04/24/23 06:00 Pulse 106 H 04/24/23 08:04 Resp 18 04/24/23 08:04 BP 120/73 04/24/23 08:04 Pulse Ox 98 04/24/23 08:04 O2 Del Method Room Air 04/24/23 08:04 Data NPU 04/12/23 01:13 04/12/23 01:13 A&P Assessment and plan (1) Acute psychosis: (2) Brief psychotic disorder: (3) Yamel: Plan 22-year-old male who presents on a 96-hour hold acutely psychotic with significant paranoia along with some grandiosity involving having solved some mysterious mathematical equation leading to the patient feeling as if his life is in danger. He has no previous history of inpatient hospitalizations but likely benefit from continued hospital stay here. ?1. Encourage individual, group and milieu therapy. ?2.Recommend sober living treatment at the highest level of care to which the patient is willing to commit. 3.Continue q-15 minute checks for safety.? 4. Continue zyprexa to 5mg at night. Continue metoprolol 50mg bid. Continue invega 6mg at night Invega Sustenna 234 mg IM loading dose to the deltoid given 04/21/2023. 5. 21 day hold filed. 21-day hold granted 04/17/2023. Involuntary Hold Information 2 96 Hour Hold: 96 Hour Involuntary Admission: Yes 96 Hour Hold Ending Date: 04/16/23 96 Hour Hold Ending Time: 09:29 Attestations NPU 2 Medical Necessity Statement*: Inpatient hospitalization is medically necessary and deemed to be the clinically appropriate intervention at this time. We will monitor initiate medications while making changes as indicated. Patient's likely length of stay is 3-5 days. Coding Level of Care Code Acute Code for Chg Fwd Diagnoses Acute psychosis F23 Brief psychotic disorder F23 Yamel F30.9
[2023-04-24] MEDS: hyDROXYzine 25 mg Capsule 50 MG PO (18:41)
[2023-04-24] MEDS: OLANZapine 5 mg ODT PO (20:29)
[2023-04-24 20:34] VITALS: BP 118/65; PULSE 89; RESP 18; TEMP 36.9; O2SAT 98
[2023-04-25 06:00] VITALS: BP 110/71; PULSE 96; RESP 18; O2SAT 99
[2023-04-25] MEDS: magnesium oxide 400 mg tablet PO ×2 (07:54→19:57)
[2023-04-25] MEDS: metoprolol tartrate 25 mg Tablet 50 MG PO ×2 (07:54→19:57)
[2023-04-25] MEDS: paliperidone ER 3 mg Tablet 6 MG PO (07:54)
[2023-04-25] MEDS: nicotine 4 mg lozenge MUCOUS MEM ×3 (07:55→18:13)
[2023-04-25] MEDS: nicotine 2 mg Gum BUCCAL (10:09)
[2023-04-25] MEDS: hyDROXYzine 25 mg Capsule 50 MG PO (10:25)
[2023-04-25] MEDS: loratadine 10 mg Tablet PO (12:43)
[2023-04-25] MEDS: fluticasone nasal spray 16gm Btl 2 SPRAY NASAL (12:43)
[2023-04-25 14:00] VITALS: BP 96/58; PULSE 104; RESP 16; TEMP 36.6; O2SAT 99
--- NOTE | 2023-04-25 14:07 | P.NPUPN_ITS ---
Subjective NPU 2 Subjective: 22-year-old male admitted with psychosis and likely yamel with bizarre delusions on admission. Patient had reported no problems with his sleep. He had reported that he was feeling much better. He stated that his concentration had improved. He had reported adequate sleep despite a slight reduction in his olanzapine. The patient reported that he had thought that he may have been manic and had described having decreased need for sleep. He had been pleasant and cooperative on the milieu with no recent aggression. Patient appeared to respond without incidence to his Invega and reported improved motivation with hope of returning to work after his hospitalization. Mental Status Exam 2 MSE Comments: This is a well-nourished well-developed white male in hospital scrubs with adequate grooming and eye contact. No abnormal movements except for mild psychomotor retardation. There was no evidence of any abnormal involuntary motor movements, tics or tremors. He was cooperative with exam in mild distress. His speech was more normal in regards to rate and volume. His mood was described as good. His affect remained slightly restricted in range. There was no clear ideas of reference and minimal grandiosity. His thought process was linear and logical. His thought content showed no evidence of homicidal ideation and no suicidal ideation. . He denied auditory or visual hallucinations. Attention and concentration were mostly intact and memory was somewhat reliable but none were formally tested. He is alert and oriented x 3. His insight was improving. His judgment remained guarded. His impulse control appeared to be improving. Vitals/I&O/Wt Last Vital Signs Temp 98.4 F 04/24/23 20:34 Pulse 96 04/25/23 06:00 Resp 18 04/25/23 06:00 BP 110/71 04/25/23 06:00 Pulse Ox 99 04/25/23 06:00 O2 Del Method Room Air 04/24/23 08:04 Data NPU 04/12/23 01:13 04/12/23 01:13 A&P Assessment and plan (1) Acute psychosis: (2) Brief psychotic disorder: (3) Yamel: Plan 22-year-old male who presents on a 96-hour hold acutely psychotic with significant paranoia along with some grandiosity involving having solved some mysterious mathematical equation leading to the patient feeling as if his life is in danger. He has no previous history of inpatient hospitalizations but likely benefit from continued hospital stay here. ?1. Encourage individual, group and milieu therapy. ?2.Recommend sober living treatment at the highest level of care to which the patient is willing to commit. 3.Continue q-15 minute checks for safety.? 4. Reduce zyprexa to 2.5mg at night. Continue metoprolol 50mg bid. Continue invega 6mg at night Invega Sustenna 234 mg IM loading dose to the deltoid given 04/21/2023. 5. 21-day hold granted 04/17/2023. Involuntary Hold Information 2 96 Hour Hold: 96 Hour Involuntary Admission: Yes 96 Hour Hold Ending Date: 04/16/23 96 Hour Hold Ending Time: 09:29 Attestations NPU 2 Medical Necessity Statement*: Inpatient hospitalization is medically necessary and deemed to be the clinically appropriate intervention at this time. We will monitor initiate medications while making changes as indicated. Patient's likely length of stay is 3-5 days. Coding Level of Care Code Acute Code for g Fwd Diagnoses Acute psychosis F23 Brief psychotic disorder F23 Yamel F30.9
[2023-04-25] MEDS: OLANZapine 5 mg ODT 2.5 MG PO (19:57)
[2023-04-25 20:15] VITALS: BP 117/78; PULSE 105; RESP 18; TEMP 36.4; O2SAT 99
[2023-04-26 05:49] VITALS: BP 100/67; PULSE 93; RESP 18; TEMP 36.8; O2SAT 98
[2023-04-26] MEDS: paliperidone ER 3 mg Tablet 6 MG PO (07:26)
[2023-04-26] MEDS: metoprolol tartrate 25 mg Tablet 50 MG PO ×2 (07:26→20:06)
[2023-04-26] MEDS: loratadine 10 mg Tablet PO (07:26)
[2023-04-26] MEDS: nicotine 4 mg lozenge MUCOUS MEM ×6 (07:26→20:06)
[2023-04-26] MEDS: magnesium oxide 400 mg tablet PO ×2 (07:26→20:06)
[2023-04-26] MEDS: fluticasone nasal spray 16gm Btl 2 SPRAY NASAL (07:28)
[2023-04-26 14:00] VITALS: BP 120/68; PULSE 104; RESP 16; TEMP 36.6; O2SAT 95
--- NOTE | 2023-04-26 16:23 | P.NPUPN_ITS ---
Subjective NPU 2 Subjective: 22-year-old male admitted with psychosis and likely yamel with bizarre delusions on admission. The patient described his mood is better. He reported no worsening sleep with the reduction in Zyprexa. He had reported that he had been manic when he initially had coming to the hospital and stated that he felt that the medications were helpful. Patient was redirectable on the milieu. There was no episodes of aggression. Mental Status Exam 2 MSE Comments: This is a well-nourished well-developed white male in hospital scrubs with adequate grooming and eye contact. No abnormal movements except for mild psychomotor retardation. There was no evidence of any abnormal involuntary motor movements, tics or tremors. He was cooperative with exam in mild distress. His speech was more normal in regards to rate, productivity and volume. His mood was described as good. His affect appeared less restricted. There was no clear ideas of reference and minimal grandiosity. His thought process was linear and logical. His thought content showed no evidence of homicidal ideation and no suicidal ideation. He denied auditory or visual hallucinations. Attention and concentration were mostly intact and memory was somewhat reliable but none were formally tested. He is alert and oriented x 3. His insight was improving. His judgment remained guarded. His impulse control appeared to be improving. Vitals/I&O/Wt Last Vital Signs Temp 98 F 04/26/23 14:00 Pulse 104 H 04/26/23 14:00 Resp 16 04/26/23 14:00 BP 120/68 04/26/23 14:00 Pulse Ox 95 04/26/23 14:00 O2 Del Method Room Air 04/26/23 14:00 Weight last 48 hrs Weight 73.391 kg Data NPU 04/12/23 01:13 04/12/23 01:13 A&P Assessment and plan (1) Acute psychosis: (2) Brief psychotic disorder: (3) Yamel: Plan 22-year-old male who presents on a 96-hour hold acutely psychotic with significant paranoia along with some grandiosity involving having solved some mysterious mathematical equation leading to the patient feeling as if his life is in danger. He has no previous history of inpatient hospitalizations but likely benefit from continued hospital stay here. ?1. Encourage individual, group and milieu therapy. ?2.Recommend sober living treatment at the highest level of care to which the patient is willing to commit. 3.Continue q-15 minute checks for safety.? 4. Discontinue zyprexa tonight and monitor for insomnia. Continue metoprolol 50mg bid. Continue invega 6mg at night. Invega Sustenna 234 mg IM loading dose to the deltoid given 04/21/2023. Patient to receive 156mg of Invega IM tommorow. 5. 21-day hold granted 04/17/2023. Involuntary Hold Information 2 96 Hour Hold: 96 Hour Involuntary Admission: Yes 96 Hour Hold Ending Date: 04/16/23 96 Hour Hold Ending Time: 09:29 Attestations NPU 2 Medical Necessity Statement*: Inpatient hospitalization is medically necessary and deemed to be the clinically appropriate intervention at this time. We will monitor initiate medications while making changes as indicated. Patient's likely length of stay is 1-2 days. Coding Level of Care Code Acute Code for Chg Fwd Diagnoses Acute psychosis F23 Brief psychotic disorder F23 Yamel F30.9
[2023-04-26] MEDS: ibuprofen 200 mg Tablet 600 MG PO (16:30)
[2023-04-26] MEDS: OLANZapine 5 mg ODT 2.5 MG PO (20:06)
[2023-04-26 20:12] VITALS: BP 102/55; PULSE 118; RESP 18; TEMP 36.8; O2SAT 99
[2023-04-27 06:00] VITALS: BP 105/67; PULSE 87; RESP 18; TEMP 36.6; O2SAT 98
[2023-04-27] MEDS: nicotine 4 mg lozenge MUCOUS MEM ×3 (06:28→12:15)
[2023-04-27] MEDS: metoprolol tartrate 25 mg Tablet 50 MG PO (08:30)
[2023-04-27] MEDS: paliperidone ER 3 mg Tablet 6 MG PO (08:30)
[2023-04-27] MEDS: magnesium oxide 400 mg tablet PO (08:30)
[2023-04-27] MEDS: loratadine 10 mg Tablet PO (08:30)
[2023-04-27] MEDS: fluticasone nasal spray 16gm Btl 2 SPRAY NASAL (08:30)
[2023-04-27] MEDS: paliperidone palmitate 156 mg Syringe IM (09:41)
--- NOTE | 2023-04-27 09:43 | PC.NURSE ---
JOSSY SUSTENNA 156 MG GIVEN IM PER PHYSICIAN ORDER. GIVEN IN RIGHT DELTOID, TOLERATED SHOT WELL. WILL CONT TO MONITOR INJECTION SITE FOR ANY REDNESS, SWELLING, OR IRRITATION. LOT [id number]
[2023-04-27 10:24] VITALS: BP 105/67; PULSE 87; RESP 18; TEMP 36.6; O2SAT 98
--- NOTE | 2023-04-27 10:37 | PC.NURSE ---
called discharge meds into [facility] in [place], [place] @ [phone], spoke to Sony. discharge meds provided by Dr. Sr, meds as follows Invega Sustenna 156 mg IM [id number], next injection due 05/27/23, refill x1 Invega 3 mg po daily for 7 days, qty 7 refill none Metoprolol tartrate 50 mg po BID qty 60, refill x1
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
== END 2023-04-27 12:51 | disposition home or self-care (01) | DRG 885 ==
LOC: ER 10:45 → NP 12:21 → CSU 04-12 00:58 → NP 04-12 16:34
PROVIDERS: Internal Medicine; Admitting Provider Psychiatry & Neurology Psychiatry; Emergency Provider Physician Assistant; Visit Provider Psychiatry & Neurology Psychiatry
DX: F23 Brief psychotic disorder (principal); E80.6 Other disorders of bilirubin metabolism; I48.0 Paroxysmal atrial fibrillation; K80.20 Calculus of gallbladder without cholecystitis without obstruction
CPT/HCPCS: 36415; 71045; 71275; 76705; 80053; 80306; 80307; 82248; 83735; 84443; 84484; 85025; 85378; 87635; 93005; 93306; 96372; 97150; 97165; 99285; J1200; J1630; J2060; J3475; J3490; J7030; Q9967